=== PATIENT | male | born 1965 | race Asian ===

== ENCOUNTER 2016-07-28 14:00 | Emergency (ER) | payer MEDICARE, OTHER ==
[~2016-07-28] VITALS: Ht 162.6 cm; Wt 89.5 kg
[~2016-07-28 14:00] MED LIST: ALBU8.5H3 INH; ALLO300T46 PO; AMLO-218 PO; DOXY-220 PO; IBUP-1542 PO; IPRA4AER INHALATION; LOSA100T47 PO; PRED50TA PO; SYMB80120 INHALATION
[2016-07-28 14:09] VITALS: Ht 162.6 cm; Wt 89.5 kg
[2016-07-28] MEDS ORDERED: PROM118S PO (14:28)
[2016-07-28] MEDS ORDERED: DOCU-144 PO (14:28)
--- NOTE | 2016-07-28 14:34 | ERD ---
ER Documentation Chief Complaint Date/Time DATE: 07/28/16 TIME: 14:30 Chief Complaint rectal pain x 1 month, hx hemmorhoids HPI 50-year-old male had a hemorrhoid surgery a month ago comes emergency room with exacerbated hemorrhoid pain after developing a cough. Patient states that he has rectal pain for a month now unchanged however he notices it more when he coughs over the last 3 days. He has not had any chest pain, shortness breath or fevers or chills. Patient denies any diarrhea or vomiting, abdominal pain. ROS All systems reviewed and are negative except as per history of present illness. Medications Home Meds Active Scripts Docusate Sodium* (Colace*) 100 Mg Capsule, 100 MG PO BID, #60 CAP Prov:BUNNY AVERY PA-C 07/28/16 Promethazine/Phenyleph/Codeine (Xcburkkdrfdq-FH-Vcetefv Syrup) 118 Ml Syrup, 1 TSP PO Q6, #4 OZ Prov:BUNNY AVERY PA-C 07/28/16 Albuterol Sulfate* (Proair HFA*) 8.5 Gm Hfa.aer.ad, 2 PUFF INH Q4, #1 INHALER Prov:ANDREA AGUIRRE PA-C 06/15/16 Prednisone* (Prednisone*) 50 Mg Tablet, 50 MG PO DAILY for 3 Days, TAB Prov:ANDREA AGUIRRE PA-C 06/15/16 Ibuprofen* (Motrin*) 600 Mg Tab, 600 MG PO Q6, #20 TAB Prov:LEANN POLO MD 11/03/15 Albuterol/Ipratropium* (Combivent Respimat*) 20-100 Mcg/Inh - 4 Gm Aer.w.adap, 1 PUFF INHALATION QID, #1 INHALER Prov:CLARIBEL LAUREANO 09/02/15 Doxycycline Monohydrate* (Doxycycline Monohydrate*) 100 Mg Tablet, 100 MG PO BID , #10 TAB Prov:CLARIBEL LAUREANO 09/02/15 Prednisone* (Prednisone*) 50 Mg Tablet, 50 MG PO ONCE, #5 TAB Prov:CLARIBEL LAUREANO 09/02/15 Reported Medications Budesonide-Formoterol Fumarate* (Symbicort*) 80-4.5 Inha, INHALATION BID, #1 EACH 09/02/15 Losartan Potassium* (Cozaar*) 100 Mg Tablet, 100 MG PO DAILY, TAB 07/23/14 Allopurinol* (Zyloprim*) 300 Mg Tablet, 300 MG PO DAILY, TAB 01/21/14 Amlodipine Besylate* (Norvasc*) 10 Mg Tablet, 10 MG PO DAILY, TAB 01/21/14 Allergies Allergies: Coded Allergies: No Known Allergies (Verified Allergy, Unknown, 06/15/16) PMhx/Soc History of Surgery: No Anesthesia Reaction: No Hx Neurological Disorder: No Hx Respiratory Disorders: Yes (Asthma) Hx Cardiac Disorders: No Hx Psychiatric Problems: No Hx Miscellaneous Medical Probl: No Hx Alcohol Use: No Hx Substance Use: No Hx Tobacco Use: No Smoking Status: Never smoker Physical Exam Vitals Vital Signs Date Time Temp Pulse Resp B/P Pulse Ox O2 Delivery O2 Flow Rate FiO2 07/28/16 14:09 97.6 91 18 144/78 98 Physical Exam General: Well-developed, well-nourished. The patient appears in no acute distress. HEENT: Head is normocephalic, atraumatic. No scleral icterus. Neck: Supple. Nontender. Lungs: Clear to auscultation. Normal air movement. Heart: Regular rate and rhythm. S1 and S2 are normal. No murmurs, gallops, or rubs. Abdomen: Soft, nontender, nondistended. Bowel sounds are normoactive. Rectal: external exam shows rectal pain outside at the 4:00 position, no masses , small opening at 12:00 position that is 2 cm away from the rectum of 1mm. No abscess appreciated, no masses, no skin changes. Extremities: No clubbing or cyanosis. Normal pulses. Moving extremities x 4. No weakness. Neurologic: Alert and oriented 3. No focal deficits. Skin: Normal turgor. No rash or lesions. Procedures/MDM 50-year-old male presents with a history of hemorrhoids had a surgical removal and it has exacerbated pain over the last 3 days after developing a cough. Differentials include external, internal hemorrhoids, thrombosed versus nonthrombosed, perianal abscess, perirectal abscess, constipation, cellulitis and among others. Medically patient has pain on palpation at the 4 o'clock position, without any masses seen, there is a small opening that is 2 cm away but very superficial and there is evidence of dehiscence. He has developed URI symptoms over the last 3 days that has exacerbated his pain, otherwise he has no changes in the pattern, or location. At this time clinically there is no evidence of perirectal or perianal abscess and I do not believe patient needs further imaging. He will be given cough medication as well as Colace for pain. He has been asked to follow-up with his surgeon next week. Patient's blood pressure was elevated (>120/80) but appears stable without evidence of hypertension emergency or urgency. The patient was counseled about the risks of hypertension and urged to pursue outpatient monitoring and therapy within a week with their primary care physician. Departure Diagnosis: Primary Impression: Hemorrhoid Condition: Good Patient Instructions: Hemorrhoids Additional Instructions: Follow up with your surgeon next week. Return sooner for any worsening symptoms sooner. BUNNY AVERY PA-C Jul 28, 2016 14:33
== END 2016-07-28 14:48 | disposition home or self-care (01) ==
LOC: FTE 14:00
DX: K64.9 Unspecified hemorrhoids (principal); J45.909 Unspecified asthma, uncomplicated
CPT/HCPCS: 99283

== ENCOUNTER 2016-08-23 09:20 | Emergency (ER) | END 2016-08-23 11:36 | disposition home or self-care (01) | DX: J45.901 Unspecified asthma with (acute) exacerbation (principal); I10 Essential (primary) hypertension | CPT/HCPCS: 71010; 93005; 94644; J2930 ==

== ENCOUNTER 2017-10-09 14:24 | Emergency (ER) | END 2017-10-09 14:27 | disposition left against medical advice (07) ==

== ENCOUNTER 2018-12-12 09:07 | Inpatient (IN) | payer MEDICARE, OTHER ==
[~2018-12-12] VITALS: Ht 162.6 cm; Wt 85.7 kg
[~2018-12-12 09:07] MED LIST changes: +ALBU18HF INHALATION; -ALBU8.5H3 INH; +ALBU8.5H8 INH; -ALLO300T46 PO; +ALLO300T84 PO; +DOCU-144 PO; -DOXY-220 PO; +DOXY100T21 PO; +LOSA100T3 PO; -LOSA100T47 PO; +PRED20TA PO; +PROM118S PO
[2018-12-12] MEDS ORDERED: ACETAMINOPHEN 500 MG TAB PO STA (09:37)
[2018-12-12] MEDS ORDERED: KETOROLAC 30 MG INJ IV STA (09:37)
[2018-12-12] MEDS ORDERED: ALBUTEROL 0.083% (NEB) 2.5 MG/3 ML AMP HHN STA (09:57)
[2018-12-12] MEDS ORDERED: METHYLPRED. NA SUCC 250 MG in DEXTROSE 5% 50 ML IV ONE (10:00)
[2018-12-12] MEDS ORDERED: IPRATROPIUM (NEB) 0.5 MG/2.5 ML AMP HHN ONE (10:00)
[2018-12-12] MEDS ORDERED: SODIUM CHLORIDE 0.9% 1L BAG IV* STA (10:02)
[2018-12-12] MEDS ORDERED: CEFTRIAXONE 1 GM/50 ML (PMX) 50 ML IVPB ONE (10:30)
--- NOTE | 2018-12-12 14:22 | ERD ---
ER Documentation Chief Complaint Chief Complaint SOB X 1 month HX asthma HPI 53-year-old male presenting with shortness of breath and fever. Patient has had a dry cough and shortness of breath for the last month however fever developed last night he is having some worsening pain and troubles breathing. Patient states that he is short of breath on the right lung space. Denies any abdominal pain. Denies vomiting. Denies changes in urination or bowel movement. Denies other medical problems. NKDA. Surgical history hernia surgery. Social history denies ROS All systems reviewed and are negative except as per history of present illness. Medications Home Meds Active Scripts Albuterol Sulfate* (Ventolin HFA*) 18 Gm Hfa.aer.ad, 2 PUFF INHALATION Q4H, #1 INHALER Prov:DIANE PALMA PA-C 08/23/16 Prednisone* (Prednisone*) 20 Mg Tab, 40 MG PO DAILY for 4 Days, TAB Prov:DIANE PALMA PA-C 08/23/16 Docusate Sodium* (Colace*) 100 Mg Capsule, 100 MG PO BID, #60 CAP Prov:BUNNY AVERY PA-C 07/28/16 Promethazine/Phenyleph/Codeine (Aqwsprnlhhcg-ND-Otjtnea Syrup) 118 Ml Syrup, 1 TSP PO Q6, #4 OZ Prov:BUNNY AVERY PA-C 07/28/16 Albuterol Sulfate* (Proair HFA*) 8.5 Gm Hfa.aer.ad, 2 PUFF INH Q4, #1 INHALER Prov:ANDREA AGUIRRE PA-C 06/15/16 Prednisone* (Prednisone*) 50 Mg Tablet, 50 MG PO DAILY for 3 Days, TAB Prov:ANDREA AGUIRRE PA-C 06/15/16 Ibuprofen* (Motrin*) 600 Mg Tab, 600 MG PO Q6, #20 TAB Prov:LEANN POLO MD 11/03/15 Albuterol/Ipratropium* (Combivent Respimat*) 20-100 Mcg/Inh - 4 Gm Aer.w.adap, 1 PUFF INHALATION QID, #1 INHALER Prov:CLARIBEL LAUREANO MD 09/02/15 Doxycycline Monohydrate* (Doxycycline Monohydrate*) 100 Mg Tablet, 100 MG PO BID, #10 TAB Prov:CLARIBEL LAUREANO MD 09/02/15 Prednisone* (Prednisone*) 50 Mg Tablet, 50 MG PO ONCE, #5 TAB Prov:CLARIBEL LAUREANO MD 09/02/15 Reported Medications Budesonide-Formoterol Fumarate* (Symbicort*) 80-4.5 Inha, INHALATION BID, #1 EACH 09/02/15 Losartan Potassium* (Cozaar*) 100 Mg Tablet, 100 MG PO DAILY, TAB 07/23/14 Allopurinol* (Zyloprim*) 300 Mg Tablet, 300 MG PO DAILY, TAB 01/21/14 Amlodipine Besylate* (Norvasc*) 10 Mg Tablet, 10 MG PO DAILY, TAB 01/21/14 Allergies Allergies: Coded Allergies: No Known Allergies (Verified Allergy, Unknown, 12/12/18) PMhx/Soc History of Surgery: No Anesthesia Reaction: No Hx Neurological Disorder: No Hx Respiratory Disorders: Yes (Asthma) Hx Cardiac Disorders: No Hx Psychiatric Problems: No Hx Miscellaneous Medical Probl: No Hx Alcohol Use: No Hx Substance Use: No Hx Tobacco Use: No Smoking Status: Never smoker FmHx Family History: No diabetes, No coronary disease, No other Physical Exam Vitals Vital Signs Date Temp Pulse Resp B/P (MAP) Pulse Ox O2 O2 Flow FiO2 Time Delivery Rate 12/12/18 101.9 10:12 12/12/18 97 22 94 Nasal 2.0 10:05 Cannula 12/12/18 2.0 10:05 12/12/18 101.9 89 20 160/91 93 09:10 (114) Physical Exam GENERAL: The patient is well-appearing, well-nourished, in no acute distress HEENT: Atraumatic. Conjunctivae are pink. Pupils equal, round, and reactive to light. There is no scleral icterus. Tympanic membranes clear bilaterally. Minda pharynx clear. NECK: C-spine is soft and supple. There is no meningismus. There is no cervical lymphadenopathy. CHEST: Breath sounds heard throughout with retractions. Mild wheezing heard in all lung ramirez. HEART: Regular rate and rhythm. No murmurs, clicks, rubs or gallops. ABDOMEN:Soft, nontender and nondistended. Good bowel sounds. No rebound or guarding. No gross peritonitis. No gross organomegaly or masses. Result Diagram: 12/12/1854 12/12/1854 Results 24 hrs Laboratory Tests Test 12/12/18 09:47 12/12/18 09:54 12/12/18 10:01 12/12/18 10:38 Prothrombin Time 12.4 Sec Prothrombin Time 1.0 Ratio INR 0.91 International Normalized Ratio Activated 35.9 Sec Partial Thrombop last Time Troponin I < 0.012 ng/ml White Blood 16.4 10^3/ul Count Red Blood Count 4.94 10^6/ul Hemoglobin 15.2 g/dl Hematocrit 44.0 % Mean Corpuscular 89.1 fl Volume Mean Corpuscular 30.8 pg Hemoglobin Mean Corpuscular 34.5 g/dl Hemoglobin Nataliia nt Red Cell 13.1 % Distribution Width Platelet Count 249 10^3/UL Mean Platelet 9.8 fl Volume Immature 0.500 % Granulocytes % Neutrophils % 89.9 % Lymphocytes % 4.6 % Monocytes % 4.5 % Eosinophils % 0.1 % Basophils % 0.4 % Nucleated Red 0.0 /100WBC Blood Cells % Immature 0.080 10^3/ul Granulocytes # Neutrophils # 14.8 10^3/ul Lymphocytes # 0.8 10^3/ul Monocytes # 0.7 10^3/ul Eosinophils # 0.0 10^3/ul Basophils # 0.1 10^3/ul Nucleated Red 0.0 10^3/ul Blood Cells # Sodium Level 141 mmol/L Potassium Level 4.2 mmol/L Chloride Level 105 mmol/L Carbon Dioxide 24 mmol/L Level Anion Gap 12 Blood Urea 18 mg/dl Nitrogen Creatinine 0.95 mg/dl Est Glomerular > 60 mL/min Filtrat Rate mL/min Glucose Level 155 mg/dl Calcium Level 9.5 mg/dl Total Bilirubin 1.8 mg/dl Direct Bilirubin 0.00 mg/dl Indirect 1.8 mg/dl Bilirubin Aspartate Amino 26 IU/L Transf (AST/SGOT ) Alanine 21 IU/L Aminotransferase (ALT/SGPT) Alkaline 59 IU/L Phosphatase Total Protein 8.7 g/dl Albumin 4.9 g/dl Globulin 3.80 g/dl Albumin/Globulin 1.28 Ratio POC Venous 2.1 mmol/L Lactate Urine Color YELLOW Urine Clarity SLIGHTLY CLOUDY Urine pH 5.0 Urine Specific 1.027 [place] Urine Ketones NEGATIVE mg/dL Urine Nitrite NEGATIVE mg/dL Urine Bilirubin NEGATIVE mg/dL Urine NEGATIVE mg/dL Urobilinogen Urine Leukocyte NEGATIVE Pau/ul Esterase Urine 3 /HPF Microscopic RBC Urine 2 /HPF Microscopic WBC Urine Mucus MANY /HPF Urine Hemoglobin 1+ mg/dL Urine Glucose NEGATIVE mg/dL Urine Total 2+ mg/dl Protein Test 12/12/18 11:40 12/12/18 13:35 POC Venous 3.2 mmol/L Lactate Lactic Acid 6.0 mmol/L Level Current Medications Medications Dose Sig/Zuleika Start Time Status Last (Trade) Ordered Route PRN Stop Time Admin Dose Reason Admin 50 ml @ ONCE ONCE 12/12/18 DC 12/12/18 Methylprednis 100 mls/hr IV 10:00 10:42 olone Sodium 12/12/18 10:29 Succinate 250 mg/Dextrose Ketorolac 30 mg ONCE STAT 12/12/18 DC 12/12/18 Tromethamine IV 09:37 10:12 (Toradol) 12/12/18 09:40 1,000 mg ONCE STAT 12/12/18 DC 12/12/18 Acetaminophen PO 09:37 10:12 (Tylenol 12/12/18 09:40 Tab) Albuterol 10 mg ONCE STAT 12/12/18 DC 12/12/18 (Proventil HHN 09:57 10:03 0.083% (Neb)) 12/12/18 09:59 Ipratropium 1 mg ONCE ONCE 12/12/18 DC 12/12/18 [place] HHN 10:00 10:03 (Atrovent 12/12/18 10:01 0.02% (Neb)) Sodium 2,660 ml BOLUS OVER 2 12/12/18 DC 12/12/18 Chloride HOURS STAT 10:02 10:13 (NS) IV* 12/12/18 10:04 Ceftriaxone 50 ml @ ONCE ONCE 12/12/18 DC 12/12/18 Sodium 100 mls/hr IVPB 10:30 10:12 12/12/18 10:59 Procedures/MDM Admit MDM: Patient's infectious symptoms have not stabilized and the patient is at risk of rapid decompensation. The patient will be admitted for careful hydration, antibiotic therapy, and infectious source control. Severe Sepsis criteria: Infectious source: Unknown End organ damage indicated by: Lactate > 2.0 mmol/L Sepsis Management: Time of recognition of severe sepsis: 13:35 Within 3 hours of recognition: Blood cultures x 2 before broad-spectrum antibiotics: [+]Yes 30 ml/kg NS bolus [+]Completed Initial lactate [+] Repeat lactate [+]Not indicated as initial lactate < 2.0 Septic Shock Assessment: Any lactic acid > 4.0 [+]Yes Persistent hypotension (SBP < 90 or 40 mmHg drop, MAP < 65) despite 30 mL/kg IV fluid bolus [-]No A focused sepsis perfusion/reperfusion reassessment examination was performed post 30ml/kg bolus @ []: Temp [], BP [], HR [], RR[], Pox [] Persistent Hypotension Treatment: Comfort care [-]No Hypotension caused by: pt. baseline, med-induced, erroneous value, condition other than infection [-]No Refusal by patient/decision maker for: blood draw, IVF, Antibiotics, Pressors [- ]No Central line [-] Vasopressor started [-]Norepinehrine I considered further perfusion assessment with CVP measurement, SCVO2, bedside ultrasound volume assessment, passive leg raise, trial of further fluid bolus and proceeded with. Accepting Care Team Current data and ongoing care discussed. Time: [14:16] Admitting Physician: [Ambreen] Home Coordinator(s): Outstanding Data: []None Critical Care Time: [60] minutes Treatments/Evaluations: Close monitoring and treatment of unstable vital signs, cardiorespiratory, and neurologic status, while maintaining tight balance of fluid, respiratory, and cardiac interventions. This includes the administration of emergency fluid management while maintaining close respiratory support as well as the provision of immediate and broad-spectrum antibiotic therapy, while performing a simultaneous assessment for possible sources in order to direct targeted therapy. This time includes discussing the case with the patient and the patient's family. This time also includes the consideration for invasive and chemical support to prevent cardiopulmonary collapse. This time does not inclu de all procedures stated elsewhere in this record. This time also includes reviewing old records, labs and radiological studies. This time includes examining and re-examining the patient. Additionally, this time also includes arranging care with admitting and consulting physicians. DIAGNOSTIC IMAGING REPORT Patient: TAMIKA DAWKINS : 1965 Age: 53 Sex: M MR #: [id number] DOS: 12/12/18 0937 Ordering MD: DESIREE WARNER PA-C Location: [facility] Room/Bed: PROCEDURE: Single view chest. CLINICAL INDICATION: Abdominal pain TECHNIQUE: Single view of the chest was obtained COMPARISON: CR CHEST 08/23/2016; CR CHEST 06/15/2016; CR CHEST 09/02/2015 FINDINGS: Cardiac silhouette is mildly enlarged. There is subtle interstitial prominence without confluent air space consolidation or evidence of an effusion. There is no pneumothorax. Regional bones are unremarkable. IMPRESSION: Mildly enlarged cardiac silhouette. Subtle interstitial prominence favored to represent trace edema, less likely inflammation. ER course: Albuterol Atrovent breathing treatment given in ED. IV Solu-Medrol given in ED. Lactic acid drawn 3 times during visit and is increasing. Rocephin given in ED. Patient admitted with concern for septic shock of unknown origin. Feel patient is stable at the time of admission. MDM: 53-year-old male presenting with shortness of breath x1 month. Patient has a fever. Patient will be admitted for higher level of care. patient has increasing lactic acid levels while in the emergency room. I have considered pneumonia versus endocarditis versus meningitis or sepsis. Patient is nontoxic- appearing however blood work is concerning for severe sepsis. Patient is admitted. Patient is stable at the time of admission. Patient currently has fever of unknown origin SAILAJA WARNER PA-C December 12, 2018 14:22
[2018-12-12] MEDS ORDERED: ACETAMINOPHEN 325 MG TAB PO PRN ×2 (15:30→21:00)
[2018-12-12] MEDS ORDERED: ONDANSETRON 4 MG INJ IV PRN (15:30)
[2018-12-12] MEDS ORDERED: BUDE6.9H INHALATION (16:09)
[2018-12-12] MEDS ORDERED: LOSA100T15 PO (16:10)
[2018-12-12] MEDS ORDERED: LATA2.5D2 BOTH EYES (16:10)
[2018-12-12] MEDS ORDERED: AMLO-147 PO (16:10)
[2018-12-12] MEDS ORDERED: ALBU18HF INHALATION (16:11)
[2018-12-12 17:00] VITALS: PULSE 96
[2018-12-12 17:22] VITALS: BP 155/89; PULSE 100; RESP 18
[2018-12-12] MEDS ORDERED: ALBUTEROL/IPRATROPIUM (NEB) 3 ML AMP HHN PRN (17:30)
[2018-12-12] MEDS ORDERED: ALBUTEROL/IPRATROPIUM (NEB) 3 ML AMP HHN STA (17:45)
[2018-12-12] MEDS ORDERED: BUDESONIDE (NEB) 0.5MG/2ML AMP HHN ONE (18:00)
[2018-12-12 19:59] VITALS: Ht 162.6 cm; Wt 85.7 kg
[2018-12-12 20:00] VITALS: PULSE 99
[2018-12-12 20:04] VITALS: BP 124/70; PULSE 102; RESP 20
[2018-12-12] MEDS ORDERED: CEPASTAT LOZENGE MT PRN (21:00)
[2018-12-12] MEDS ORDERED: GUAIFENESIN/CODEINE 5ML CUP PO PRN (21:00)
[2018-12-12] MEDS ORDERED: ALBUTEROL/IPRATROPIUM (NEB) 3 ML AMP HHN SCH (21:00)
[2018-12-12] MEDS ORDERED: AZITHROMYCIN 500 MG in SOD CHLORIDE 0.9% 250 ML IVPB ONE (21:30)
[2018-12-12] MEDS: AMLODIPINE 10 MG TAB PO SCH (21:38)
[2018-12-12] MEDS: ALBUTEROL/IPRATROPIUM (NEB) 3 ML AMP HHN SCH (22:20)
[2018-12-12] MEDS: POTASSIUM CHLORIDE 10 MEQ in SOD CHLORIDE 0.9% 1,000 ML IV SCH (23:44)
[2018-12-12] MEDS: LATANOPROST 0.005% 2.5 ML OPH BOTH EYES SCH (23:45)
[2018-12-13] VITALS (14 sets, daily range): BP systolic 117–135; BP diastolic 58–84; PULSE 74–158; RESP 17–20
[2018-12-13] MEDS: ALBUTEROL/IPRATROPIUM (NEB) 3 ML AMP HHN SCH ×6 (01:23→20:14)
[2018-12-13] MEDS: POTASSIUM CHLORIDE 10 MEQ in SOD CHLORIDE 0.9% 1,000 ML IV SCH ×3 (08:03→20:48)
[2018-12-13] MEDS: CEFTRIAXONE 1 GM/50 ML (PMX) 50 ML IVPB SCH (08:31)
[2018-12-13] MEDS: AMLODIPINE 10 MG TAB PO SCH (08:31)
[2018-12-13] MEDS: ALLOPURINOL 300 MG TAB PO SCH (08:31)
[2018-12-13] MEDS: LISINOPRIL 10 MG TAB PO SCH (08:31)
[2018-12-13] MEDS: ENOXAPARIN 40 MG/0.4 ML SYG SC SCH (08:45)
[2018-12-13] MEDS: FLUTICASONE/VILANTEROL 100-25 INH SCH (11:56)
--- NOTE | 2018-12-13 13:11 | PN ---
Date/Time of Note Date/Time of Note DATE: 12/13/18 TIME: 12:57 Assessment/Plan VTE Prophylaxis Risk score (from [facility])>0 risk: 3 SCD applied (from [place]): No SCD contraindicated: low risk/ambulating Pharmacological prophylaxis: LMWH Lines/Catheters IV [facility] Type [facility]from [facility]): Peripheral IV Assessment/Plan Hospital Course A: fever- unclear source, afebrile now lactic acidosis- r/o sepsis, normal now asthma exacerbation elevated ck with myalgia HTN P: cont hydration cont current abx pending cx results cont resp rx cont iv solumedrol pulm consult cont hold losartan discussed with rheum cont hydration, will eval elevated ck as outpt monitor labs Result Diagram: 12/13/1852112/13/18521 Results 24hrs Laboratory Tests Test 12/12/18 13:35 12/12/18 17:51 12/12/18 21:26 12/13/18 05:22 Lactic Acid Level 6.0 *H 5.5 *H 4.6 *H White Blood Count 14.0 H Red Blood Count 4.37 L Hemoglobin 13.4 L Hematocrit 39.1 L Mean Corpuscular 89.5 Volume Mean Corpuscular 30.7 Hemoglobin Mean Corpuscular 34.3 Hemoglobin Concent Red Cell 13.7 Distribution Width Platelet Count 223 Mean Platelet Volume 10.0 Immature 0.800 H Granulocytes % Neutrophils % 86.2 H Lymphocytes % 8.0 L Monocytes % 4.9 Eosinophils % 0.0 Basophils % 0.1 Nucleated Red Blood 0.0 Cells % Immature 0.110 H Granulocytes # Neutrophils # 12.1 H Lymphocytes # 1.1 Monocytes # 0.7 Eosinophils # 0.0 Basophils # 0.0 Nucleated Red Blood 0.0 Cells # Sodium Level 143 Potassium Level 4.0 Chloride Level 109 Carbon Dioxide Level 23 Anion Gap 11 Blood Urea Nitrogen 16 Creatinine 0.83 Est Glomerular > 60 Filtrat Rate mL/min Glucose Level 144 Calcium Level 8.7 Total Bilirubin 0.9 Direct Bilirubin 0.00 Indirect Bilirubin 0.9 Aspartate Amino 29 Transf (AST/SGOT) Alanine 25 Aminotransferase (AL T/SGPT) Alkaline Phosphatase 45 Creatine Kinase 553 H Total Protein 7.4 # Albumin 4.0 Globulin 3.40 H Albumin/Globulin 1.17 Ratio Test 12/13/18 07:38 Lactic Acid Level 2.0 Subjective 24 Hr Interval Summary Free Text/Dictation Pt still with productive cough and wheeze, improved with respiratory rx. Still some sob, no cp. Myalgias persist, did have elevated ck, but less this am. Losartan d/c'd. Appetite improved. Lactic acid normalized. Exam/Review of Systems Exam Vitals Vital Signs Date Temp Pulse Resp B/P (MAP) Pulse Ox O2 O2 Flow FiO2 Time Delivery Rate 12/13/18 100 12:00 12/13/18 4 2.0 11:40 12/13/18 20 Nasal 11:38 Cannula 12/13/18 97.9 121/58 11:17 (79) 12/12/18 28 17:50 Intake and Output 12/12/18 12/12/18 12/13/18 1515:00 23:00 07:00 IntakeIntake Total 2760 ml 120 ml 650 ml BalanceBalance 2760 ml 120 ml 650 ml Exam gen- nad, nontoxic heent- anicteric, o/p clear neck- supple, no adenopathy lungs- diffuse expiratory wheeze heart- RRR ext- no edema Results Results 24hrs Laboratory Tests Test 12/12/18 13:35 12/12/18 17:51 12/12/18 21:26 12/13/18 05:22 Lactic Acid Level 6.0 *H 5.5 *H 4.6 *H White Blood Count 14.0 H Red Blood Count 4.37 L Hemoglobin 13.4 L Hematocrit 39.1 L Mean Corpuscular 89.5 Volume Mean Corpuscular 30.7 Hemoglobin Mean Corpuscular 34.3 Hemoglobin Concent Red Cell 13.7 Distribution Width Platelet Count 223 Mean Platelet Volume 10.0 Immature 0.800 H Granulocytes % Neutrophils % 86.2 H Lymphocytes % 8.0 L Monocytes % 4.9 Eosinophils % 0.0 Basophils % 0.1 Nucleated Red Blood 0.0 Cells % Immature 0.110 H Granulocytes # Neutrophils # 12.1 H Lymphocytes # 1.1 Monocytes # 0.7 Eosinophils # 0.0 Basophils # 0.0 Nucleated Red Blood 0.0 Cells # Sodium Level 143 Potassium Level 4.0 Chloride Level 109 Carbon Dioxide Level 23 Anion Gap 11 Blood Urea Nitrogen 16 Creatinine 0.83 Est Glomerular > 60 Filtrat Rate mL/min Glucose Level 144 Calcium Level 8.7 Total Bilirubin 0.9 Direct Bilirubin 0.00 Indirect Bilirubin 0.9 Aspartate Amino 29 Transf (AST/SGOT) Alanine 25 Aminotransferase (AL T/SGPT) Alkaline Phosphatase 45 Creatine Kinase 553 H Total Protein 7.4 # Albumin 4.0 Globulin 3.40 H Albumin/Globulin 1.17 Ratio Test 12/13/18 07:38 Lactic Acid Level 2.0 Medications Medication Current Medications Ondansetron HCl (Zofran Inj) 4 mg BRIDGE ORDER PRN IV NAUSEA/VOMITING; Start 12/12/18 at 15:30; Stop 12/13/18 at 15:29 Acetaminophen (Tylenol Tab) 650 mg ER BRIDGE PRN PO .MILD PAIN 1-3 OR TEMP Last administered on 12/12/18 20:07; Admin Dose 650 MG; Start 12/12/18 at 15:30; Stop 12/13/18 at 15:29 Albuterol/ Ipratropium (Duoneb) 3 ml Q4H RESP THERAPY HHN Last administered on 12/13/18 11:36; Admin Dose 3 ML; Start 12/12/18 at 21:00 Amlodipine Besylate (Norvasc) 10 mg DAILY PO Last administered on 12/13/18 08:31; Admin Dose 10 MG; Start 12/12/18 at 21:00 Lisinopril (Zestril) 10 mg DAILY PO Last administered on 12/13/18 08:31; Admin Dose 10 MG; Start 12/13/18 at 09:00 Guaifenesin/ Codeine Phosphate (Robitussin Ac Liquid Cup) 5 ml Q4H PRN PO cough Last administered on 12/12/18 21:39; Admin Dose 5 ML; Start 12/12/18 at 21:00 Phenol (Cepastat Lozenge) 1 lozenge Q1H PRN MT pain Last administered on 12/12/18 21:38; Admin Dose 1 LOZENGE; Start 12/12/18 at 21:00 Allopurinol (Zyloprim) 300 mg DAILY PO Last administered on 12/13/18 08:31; A dmin Dose 300 MG; Start 12/13/18 at 09:00 Acetaminophen (Tylenol Tab) 650 mg Q4H PRN PO MILD PAIN(1-3)OR ELEVATED TEMP; Start 12/12/18 at 21:00 Potassium Chloride 10 meq/ Sodium Chloride 1,005 ml @ 100 mls/hr Q10H3M IV Last administered on 12/13/18 11:56; Admin Dose 100 MLS/HR; Start 12/12/18 at 22:00 Ceftriaxone Sodium 50 ml @ 100 mls/hr Q24H IVPB Last administered on 12/13/18 08:31; Admin Dose 100 MLS/HR; Start 12/13/18 at 09:00 Enoxaparin Sodium (Lovenox) 40 mg DAILY SC Last administered on 12/13/18 08:45; Admin Dose 40 MG; Start 12/13/18 at 09:00 Latanoprost (Xalatan) 1 drop HS BOTH EYES Last administered on 12/12/18 23:45; Admin Dose 1 DROP; Start 12/12/18 at 21:00 Fluticasone/ Vilanterol (Breo Ellipta 100-25 Mcg Inh) 1 inh DAILY INH Last administered on 12/13/18 11:56; Admin Dose 1 INH; Start 12/13/18 at 10:30 BRANDY BENITEZ MD December 13, 2018 13:11
--- NOTE | 2018-12-13 13:28 | HP ---
DATE OF ADMISSION: 12/12/2018 CHIEF COMPLAINT: A 2-day history of sore throat, productive cough, myalgias, wheezing, shortness of breath and subjective fever. HISTORY OF PRESENT ILLNESS: The patient is a 53-year-old Irish male with a history of asthma who reports he was feeling ill last few days with a sore throat, cough productive of yellow sputum, muscl e aches, wheezing, shortness of breath and subjective fever. Patient presented to the ER and noted t o have asthma exacerbation and increasing lactic acid. Patient was hydrated, started on antibiotics, found to have fever of 101 with a white count of 16.4. Patient is admitted for further management. PAST MEDICAL HISTORY: Asthma, hypertension, gout, hyperlipidemia, developmental delay, allergies and hemorrhoids. OPERATIONS: Perirectal abscess, hemorrhoids. MEDICATIONS: 1. Losartan 100 mg daily. 2. Norvasc 10 mg daily. 3. ProAir p.r.n. 4. Advair Diskus b.i.d. ALLERGIES: Patient has no known drug allergies. SOCIAL HISTORY: The patient does not smoke or drink. He is single. FAMILY HISTORY: Father , unsure cause. Mother also , unsure cause. The patient had 7 b rothers, 1 . One sister is . REVIEW OF SYSTEMS: GENERAL: As noted in HPI. HEENT: Denies any headache, congestion, rhinorrhea. He does have sore throat as noted in HPI. No o ther HEENT complaints. RESPIRATORY: As in HPI. CARDIOVASCULAR: Denies any chest pain, palpitations, dizziness, or other cardiovascular symptoms. GASTROINTESTINAL: The patient denies any abdominal pain, nausea, vomiting, bright red blood per rect um, melena, or other GI symptoms. GENITOURINARY: The patient denies any dysuria, frequency, or other symptoms. NEUROLOGIC: The patient denies any numbness, tingling or weakness. PHYSICAL EXAMINATION: On admission: VITAL SIGNS: Temperature 101.9, pulse 95, blood pressure 154/82, pulse ox 95% on room air, respirato ry rate 20. GENERAL APPEARANCE: The patient is a well-developed, well-nourished Irish male with complaints of shortness of breath, otherwise in no acute distress. He appears nontoxic. HEENT: Normocephalic, atraumatic. Sclerae anicteric. Oropharynx is clear. NECK: Supple, no adenopathy, no bruits. LUNGS: Have diffuse expiratory wheezing. CARDIAC: Regular rate and rhythm. ABDOMEN: Bowel sounds are present. Abdomen is soft, nontender, nondistended. EXTREMITIES: Without cyanosis, clubbing, or edema. NEUROLOGIC: The patient is alert and oriented x3 with no focal neurologic findings. DATA: White count 16.4, hemoglobin 15.2, hematocrit 44, platelets 249. Sodium 141, potassium 4.2, c hloride 105, bicarbonate 24, BUN 18, creatinine 0.95, glucose 155, bilirubin 1.8. AST 26, ALT 21, al kaline phosphatase 59. Troponin less than 0.012. Lactate 2.1, increased to 3.2. Serum lactic acid was 6 to 5.5, last was 4.6. UA was slightly cloudy, 3 RBCs, 2 WBCs, 1+ hemoglobin, and many mu cus, 2+ protein. Chest x-ray showed a mildly enlarged cardiac silhouette, central interstitial promi nence, no obvious consolidation or effusion. IMPRESSION: 1. Fever, unclear source. 2. Lactic acidosis, rule out sepsis. 3. Asthma exacerbation. 4. Hypertension. 5. Elevated CK with mild . PLAN: 1. Admit to tele. 2. IV hydration. 3. IV antibiotics. 4. Ceftriaxone and Zithromax. 5. Respiratory treatments. 6. Continue IV steroids. 7. Monitor lactic acid. 8. Discharge Losartan and start on lisinopril. 9. Continue other outpatient meds. 10. Consider pulmonary evaluation. Dictated By: BRANDY FLORES/VAISHNAVI Conf#: [id number] DID#: [id number]
[2018-12-13] MEDS ORDERED: METHYLPREDNISOLONE 40 MG INJ IV ONE (13:30)
--- NOTE | 2018-12-13 17:04 | CONS ---
Assessment/Plan Assessment/Plan Assessment/Plan (Daily) Chest x-ray showing interstitial prominence. Assessment and recommendations; 1. patient admitted with acute bronchitis with asthma exacerbation with bilateral wheezing. 2. History of hypertension and glaucoma. Continue current supportive care. Increase Solu-Medrol to 40 mg every 6 hours. Continue allopurinol as the patient now is complaining of mild gout pain. Consultation Date/Type/Reason Admit Date/Time December 12, 2018 at 15:27 Date of Consultation: December 13, 2018 Type of Consult Pulmonary Patient is a 53-year-old [place] gentleman who came into the hospital yesterday with a 10-day history of coughing sputum production wheezing and chest congestion. The patient does have a history of asthma. He denies any high fever, body aches or myalgias. Does complain of mild sore throat. Denies any nausea vomiting. Past medical history; 1. History of asthma 2. Gout 3. Glaucoma 4. Hypertension Medications; reviewed Allergies; none Social history; noncontributory Family history; he is single, no show any asthma in the family. Occupational history; patient is on disability. Review of systems; denies any headache, visual changes, sinus symptoms. Complains of mild sore throat. Denies any fever or chills. Complains of wheezing, cough, production of yellow sputum. Denies any hemoptysis. Denies any abdominal pain, nausea vomiting. Any melena or hematochezia. Denies any edema. Any urinary symptoms. General exam; middle-aged male, awake alert, currently no distress. Date/Time of Note DATE: 12/13/18 TIME: 17:01 Past Medical History Home Meds Reported Medications Albuterol Sulfate* (Ventolin HFA*) 18 Gm Hfa.aer.ad, 2 PUFF INHALATION Q4H, #1 INHALER 12/12/18 Losartan Potassium* (Losartan Potassium*) 100 Mg Tablet, 100 MG PO DAILY, TAB 12/12/18 Amlodipine Besylate* (Amlodipine Besylate*) 10 Mg Tablet, 10 MG PO DAILY, #30 TAB 12/12/18 Latanoprost (Latanoprost) 2.5 Ml Drops, 1 DROP BOTH EYES QHS, #1 BOTTLE 12/12/18 Budesonide-Formoterol Fumarate* (Symbicort*) 80-4.5 Mcg Hfa.aer.ad, 2 PUFF INHALATION BID, BOTTLE 12/12/18 Discontinued Reported Medications Budesonide-Formoterol Fumarate* (Symbicort*) 80-4.5 Inha, INHALATION BID, #1 EACH 09/02/15 Losartan Potassium* (Cozaar*) 100 Mg Tablet, 100 MG PO DAILY, TAB 07/23/14 Allopurinol* (Zyloprim*) 300 Mg Tablet, 300 MG PO DAILY, TAB 01/21/14 Amlodipine Besylate* (Norvasc*) 10 Mg Tablet, 10 MG PO DAILY, TAB 01/21/14 Discontinued Scripts Albuterol Sulfate* (Ventolin HFA*) 18 Gm Hfa.aer.ad, 2 PUFF INHALATION Q4H, #1 INHALER Prov:DIANE PALMA PA-C 08/23/16 Prednisone* (Prednisone*) 20 Mg Tab, 40 MG PO DAILY for 4 Days, TAB Prov:DIANE PALMA PA-C 08/23/16 Docusate Sodium* (Colace*) 100 Mg Capsule, 100 MG PO BID, #60 CAP Prov:BUNNY AVERY PA-C 07/28/16 Promethazine/Phenyleph/Codeine (Yrzayteqiftw-JN-Lidffme Syrup) 118 Ml Syrup, 1 TSP PO Q6, #4 OZ Prov:BUNNY AVERY PA-C 07/28/16 Albuterol Sulfate* (Proair HFA*) 8.5 Gm Hfa.aer.ad, 2 PUFF INH Q4, #1 INHALER Prov:ANDREA AGUIRRE PA-C 06/15/16 Prednisone* (Prednisone*) 50 Mg Tablet, 50 MG PO DAILY for 3 Days, TAB Prov:ANDREA AGUIRRE PA-C 06/15/16 Ibuprofen* (Motrin*) 600 Mg Tab, 600 MG PO Q6, #20 TAB Prov:LEANN POLO MD 11/03/15 Albuterol/Ipratropium* (Combivent Respimat*) 20-100 Mcg/Inh - 4 Gm Aer.w.adap, 1 PUFF INHALATION QID, #1 INHALER Prov:CLARIBEL LAUREANO MD 09/02/15 Doxycycline Monohydrate* (Doxycycline Monohydrate*) 100 Mg Tablet, 100 MG PO BID, #10 TAB Prov:CLARIBEL LAUREANO MD 09/02/15 Prednisone* (Prednisone*) 50 Mg Tablet, 50 MG PO ONCE, #5 TAB Prov:CLARIBEL LAUREANO MD 09/02/15 Medications Current Medications Albuterol/ Ipratropium (Duoneb) 3 ml Q4H RESP THERAPY HHN Last administered on 12/13/18 16:42; Admin Dose 3 ML; Start 12/12/18 at 21:00 Amlodipine Besylate (Norvasc) 10 mg DAILY PO Last administered on 12/13/18 08:31; Admin Dose 10 MG; Start 12/12/18 at 21:00 Lisinopril (Zestril) 10 mg DAILY PO Last administered on 12/13/18 08:31; Admin Dose 10 MG; Start 12/13/18 at 09:00 Guaifenesin/ Codeine Phosphate (Robitussin Ac Liquid Cup) 5 ml Q4H PRN PO cough Last administered on 12/12/18 21:39; Admin Dose 5 ML; Start 12/12/18 at 21:00 Phenol (Cepastat Lozenge) 1 lozenge Q1H PRN MT pain Last administered on 12/12/18 21:38; Admin Dose 1 LOZENGE; Start 12/12/18 at 21:00 Allopurinol (Zyloprim) 300 mg DAILY PO Last administered on 12/13/18 08:31; Admin Dose 300 MG; Start 12/13/18 at 09:00 Acetaminophen (Tylenol Tab) 650 mg Q4H PRN PO MILD PAIN(1-3)OR ELEVATED TEMP; Start 12/12/18 at 21:00 Potassium Chloride 10 meq/ Sodium Chloride 1,005 ml @ 100 mls/hr Q10H3M IV Last administered on 12/13/18 11:56; Admin Dose 100 MLS/HR; Start 12/12/18 at 22:00 Ceftriaxone Sodium 50 ml @ 100 mls/hr Q24H IVPB Last administered on 12/13/18 08:31; Admin Dose 100 MLS/HR; Start 12/13/18 at 09:00 Enoxaparin Sodium (Lovenox) 40 mg DAILY SC Last administered on 12/13/18 08:45; Admin Dose 40 MG; Start 12/13/18 at 09:00 Latanoprost (Xalatan) 1 drop HS BOTH EYES Last administered on 12/12/18at 23:45; Admin Dose 1 DROP; Start 12/12/18 at 21:00 Fluticasone/ Vilanterol (Breo Ellipta 100-25 Mcg Inh) 1 inh DAILY INH Last administered on 12/13/18at 11:56; Admin Dose 1 INH; Start 12/13/18 at 10:30 Allergies: Coded Allergies: No Known Allergies (Verified Allergy, Unknown, 12/12/18) Social History Smoking Status: Never smoker Exam/Review of Systems Exam Vitals Vital Signs Date Temp Pulse Resp B/P (MAP) Pulse Ox O2 O2 Flow FiO2 Time Delivery Rate 12/13/18 97 2.0 16:49 12/13/18 81 20 Nasal 16:46 Cannula 12/13/18 98.7 117/72 15:00 (87) 12/12/18 28 17:50 Intake and Output 12/12/18 12/12/18 12/13/18 1515:00 23:00 07:00 IntakeIntake Total 2760 ml 120 ml 650 ml BalanceBalance 2760 ml 120 ml 650 ml Exam H EENT exam; supple neck, no JVD. No lymphadenopathy. Midline trachea. No thyromegaly. Patient has fair dentition. No neck masses. Pupils are small bilaterally. Chest exam; bilateral wheezing. S1-S2 audible, no murmurs. Regular rhythm. Abdomen exam; soft, nontender. No organomegaly. Bowel sounds audible. Extremity exam; no peripheral edema clubbing. Pulses 1+. MANAGER CARGO exam; no focal deficit. Results Result Diagram: 12/13/1852112/13/18521 Results 24hrs Laboratory Tests Test 12/12/18 17:51 12/12/18 21:26 12/13/18 05:22 12/13/18 07:38 Lactic Acid Level 5.5 *H 4.6 *H 2.0 White Blood Count 14.0 H Red Blood Count 4.37 L Hemoglobin 13.4 L Hematocrit 39.1 L Mean Corpuscular 89.5 Volume Mean Corpuscular 30.7 Hemoglobin Mean Corpuscular 34.3 Hemoglobin Concent Red Cell 13.7 Distribution Width Platelet Count 223 Mean Platelet Volume 10.0 Immature 0.800 H Granulocytes % Neutrophils % 86.2 H Lymphocytes % 8.0 L Monocytes % 4.9 Eosinophils % 0.0 Basophils % 0.1 Nucleated Red Blood 0.0 Cells % Immature 0.110 H Granulocytes # Neutrophils # 12.1 H Lymphocytes # 1.1 Monocytes # 0.7 Eosinophils # 0.0 Basophils # 0.0 Nucleated Red Blood 0.0 Cells # Sodium Level 143 Potassium Level 4.0 Chloride Level 109 Carbon Dioxide Level 23 Anion Gap 11 Blood Urea Nitrogen 16 Creatinine 0.83 Est Glomerular > 60 Filtrat Rate mL/min Glucose Level 144 Calcium Level 8.7 Total Bilirubin 0.9 Direct Bilirubin 0.00 Indirect Bilirubin 0.9 Aspartate Amino 29 Transf (AST/SGOT) Alanine 25 Aminotransferase (AL T/SGPT) Alkaline Phosphatase 45 Creatine Kinase 553 H Total Protein 7.4 # Albumin 4.0 Globulin 3.40 H Albumin/Globulin 1.17 Ratio Medications Medication Current Medications Albuterol/ Ipratropium (Duoneb) 3 ml Q4H RESP THERAPY HHN Last administered on 12/13/18 16:42; Admin Dose 3 ML; Start 12/12/18 at 21:00 Amlodipine Besylate (Norvasc) 10 mg DAILY PO Last administered on 12/13/18 08:31; Admin Dose 10 MG; Start 12/12/18 at 21:00 Lisinopril (Zestril) 10 mg DAILY PO Last administered on 12/13/18 08:31; Admin Dose 10 MG; Start 12/13/18 at 09:00 Guaifenesin/ Codeine Phosphate (Robitussin Ac Liquid Cup) 5 ml Q4H PRN PO cough Last administered on 12/12/18 21:39; Admin Dose 5 ML; Start 12/12/18 at 21:00 Phenol (Cepastat Lozenge) 1 lozenge Q1H PRN MT pain Last administered on 12/12/18 21:38; Admin Dose 1 LOZENGE; Start 12/12/18 at 21:00 Allopurinol (Zyloprim) 300 mg DAILY PO Last administered on 12/13/18 08:31; Admin Dose 300 MG; Start 12/13/18 at 09:00 Acetaminophen (Tylenol Tab) 650 mg Q4H PRN PO MILD PAIN(1-3)OR ELEVATED TEMP; Start 12/12/18 at 21:00 Potassium Chloride 10 meq/ Sodium Chloride 1,005 ml @ 100 mls/hr Q10H3M IV Last administered on 12/13/18 11:56; Admin Dose 100 MLS/HR; Start 12/12/18 at 22:00 Ceftriaxone Sodium 50 ml @ 100 mls/hr Q24H IVPB Last administered on 12/13/18 08:31; Admin Dose 100 MLS/HR; Start 12/13/18 at 09:00 Enoxaparin Sodium (Lovenox) 40 mg DAILY SC Last administered on 12/13/18 08:45; Admin Dose 40 MG; Start 12/13/18 at 09:00 Latanoprost (Xalatan) 1 drop HS BOTH EYES Last administered on 12/12/18 23:45; Admin Dose 1 DROP; Start 12/12/18 at 21:00 Fluticasone/ Vilanterol (Breo Ellipta 100-25 Mcg Inh) 1 inh DAILY INH Last administered on 12/13/18 11:56; Admin Dose 1 INH; Start 12/13/18 at 10:30 MELISSA ROWE December 13, 2018 17:04
[2018-12-13] MEDS: METHYLPREDNISOLONE 40 MG INJ IV SCH (17:47)
[2018-12-13] MEDS ORDERED: COLCHICINE 0.6 MG TAB PO ONE (18:30)
[2018-12-13] MEDS: LATANOPROST 0.005% 2.5 ML OPH BOTH EYES SCH (20:38)
[2018-12-14] VITALS (10 sets, daily range): BP systolic 121–152; BP diastolic 66–86; PULSE 70–94; RESP 18–20
[2018-12-14] MEDS: METHYLPREDNISOLONE 40 MG INJ IV SCH ×4 (00:03→17:03)
[2018-12-14] MEDS: ALBUTEROL/IPRATROPIUM (NEB) 3 ML AMP HHN SCH ×6 (00:26→20:27)
[2018-12-14] MEDS: POTASSIUM CHLORIDE 10 MEQ in SOD CHLORIDE 0.9% 1,000 ML IV SCH ×2 (06:36→17:41)
[2018-12-14] MEDS: LISINOPRIL 10 MG TAB PO SCH (08:00)
[2018-12-14] MEDS: FLUTICASONE/VILANTEROL 100-25 INH SCH (08:00)
[2018-12-14] MEDS: ALLOPURINOL 300 MG TAB PO SCH (08:00)
[2018-12-14] MEDS: AMLODIPINE 10 MG TAB PO SCH (08:00)
[2018-12-14] MEDS: CEFTRIAXONE 1 GM/50 ML (PMX) 50 ML IVPB SCH (08:00)
[2018-12-14] MEDS: ENOXAPARIN 40 MG/0.4 ML SYG SC SCH (08:16)
--- NOTE | 2018-12-14 11:54 | CONS ---
Consult Date/Type/Reason Admit Date/Time December 12, 2018 at 15:27 Initial Consult Date 12/13/18 Type of Consult Pulmonary Date/Time of Note DATE: 12/14/18 TIME: 11:53 Subjective Patient stable this morning. Still has shortness of breath on exertion Objective Vital Signs Date Temp Pulse Resp B/P (MAP) Pulse Ox O2 O2 Flow FiO2 Time Delivery Rate 12/14/18 97.3 86 18 150/81 98 Nasal 2.0 11:27 (104) Cannula 12/12/18 28 17:50 Intake and Output 12/13/18 12/13/18 12/14/18 1515:00 23:00 07:00 IntakeIntake Total 1200 ml 800 ml BalanceBalance 1200 ml 800 ml Exam GENERAL: Well-nourished well-developed gentleman comfortable at rest VITAL SIGNS: per chart NECK: Supple. No JVD or lymphadenopathy. CARDIAC EXAM: S1, S2. No added sounds or murmurs. CHEST: Diminished air entry bilaterally with expiratory wheezing ABDOMEN: Soft, nontender. No guarding or rebound. EXTREMITIES: No cyanosis, clubbing or edema. NEUROLOGIC: Generalized weakness. No focal deficits. Vent Setting Fraction of Inspired Oxygen pe: 28 Results/Medications Result Diagram: 12/14/18 0508 12/14/18 0508 Results 24 hrs Laboratory Tests Test 12/14/18 05:08 White Blood Count 16.2 H Red Blood Count 4.53 L Hemoglobin 13.7 L Hematocrit 40.9 L Mean Corpuscular Volume 90.3 Mean Corpuscular Hemoglobin 30.2 Mean Corpuscular Hemoglobin Concent 33.5 Red Cell Distribution Width 13.9 Platelet Count 242 Mean Platelet Volume 10.3 Immature Granulocytes % 0.600 H Neutrophils % 89.7 H Lymphocytes % 5.6 L Monocytes % 4.0 Eosinophils % 0.0 Basophils % 0.1 Nucleated Red Blood Cells % 0.0 Immature Granulocytes # 0.100 H Neutrophils # 14.6 H Lymphocytes # 0.9 Monocytes # 0.7 Eosinophils # 0.0 Basophils # 0.0 Nucleated Red Blood Cells # 0.0 Sodium Level 141 Potassium Level 4.1 Chloride Level 108 Carbon Dioxide Level 22 Anion Gap 11 Blood Urea Nitrogen 17 Creatinine 0.82 Est Glomerular Filtrat Rate mL/min > 60 Glucose Level 147 Calcium Level 8.7 Magnesium Level 2.1 Creatine Kinase 688 H Thyroid Stimulating Hormone (TSH) 0.875 Medications Current Medications Albuterol/ Ipratropium (Duoneb) 3 ml Q4H RESP THERAPY HHN Last administered on 12/14/18 10:52; Admin Dose 3 ML; Start 12/12/18 at 21:00 Amlodipine Besylate (Norvasc) 10 mg DAILY PO Last administered on 12/14/18 08:00; Admin Dose 10 MG; Start 12/12/18 at 21:00 Lisinopril (Zestril) 10 mg DAILY PO Last administered on 12/14/18 08:00; Admin Dose 10 MG; Start 12/13/18 at 09:00 Guaifenesin/ Codeine Phosphate (Robitussin Ac Liquid Cup) 5 ml Q4H PRN PO cough Last administered on 12/12/18 21:39; Admin Dose 5 ML; Start 12/12/18 at 21:00 Phenol (Cepastat Lozenge) 1 lozenge Q1H PRN MT pain Last administered on 12/12/18 21:38; Admin Dose 1 LOZENGE; Start 12/12/18 at 21:00 Allopurinol (Zyloprim) 300 mg DAILY PO Last administered on 12/14/18 08:00; Admin Dose 300 MG; Start 12/13/18 at 09:00 Acetaminophen (Tylenol Tab) 650 mg Q4H PRN PO MILD PAIN(1-3)OR ELEVATED TEMP; Start 12/12/18 at 21:00 Potassium Chloride 10 meq/ Sodium Chloride 1,005 ml @ 100 mls/hr Q10H3M IV Last administered on 12/14/18 06:36; Admin Dose 100 MLS/HR; Start 12/12/18 at 22:00 Ceftriaxone Sodium 50 ml @ 100 mls/hr Q24H IVPB Last administered on 12/14/18 08:00; Admin Dose 100 MLS/HR; Start 12/13/18 at 09:00 Enoxaparin Sodium (Lovenox) 40 mg DAILY SC Last administered on 12/14/18 08:16; Admin Dose 40 MG; Start 12/13/18 at 09:00 Latanoprost (Xalatan) 1 drop HS BOTH EYES Last administered on 12/13/18 20:38; Admin Dose 1 DROP; Start 12/12/18 at 21:00 Fluticasone/ Vilanterol (Breo Ellipta 100-25 Mcg Inh) 1 inh DAILY INH Last administered on 12/14/18at 08:00; Admin Dose 1 INH; Start 12/13/18 at 10:30 Methylprednisolone Sodium Succinate (Solu-Medrol) 40 mg Q6 IV Last administered on 12/14/18at 06:13; Admin Dose 40 MG; Start 12/13/18 at 18:00 Assessment/Plan Hospital Course (Demo Recall) Assessment 1. Acute hypoxemic respiratory failure secondary to acute bronchitis possible infective origin 2. History of prior psychiatric disorder Plan 1. Continue supplemental O2 2. Continue bronchodilators and steroids 3. Continue antibiotics, check procalcitonin ALEX DEJESUS MD, [facility] December 14, 2018 11:54
--- NOTE | 2018-12-14 13:31 | PN ---
Date/Time of Note Date/Time of Note DATE: 12/14/18 TIME: 13:25 Assessment/Plan VTE Prophylaxis Risk score (from Ns)>0 risk: 1 SCD applied (from Ns): No SCD contraindicated: low risk/ambulating Pharmacological prophylaxis: LMWH Lines/Catheters IV Catheter Type (from [facility]): Peripheral IV Assessment/Plan Hospital Course A: fever- unclear source, afebrile now lactic acidosis- r/o sepsis, normal now asthma exacerbation elevated ck with myalgia HTN P: cont hydration cont current abx pending cx results cont resp rx cont iv solumedrol pulm consult cont hold losartan discussed with rheum cont hydration, will eval elevated ck as outpt monitor labs Assessment/Plan A- asthma exacerbation NSVT asx elevated ck with myalgias lactic acidosis fever HTN P: cardiology eval cont resp rx, steroids, abx per pulmonary cont hydration check aldolase cont other rx Result Diagram: 12/14/18 0508 12/14/18 0508 Results 24hrs Laboratory Tests Test 12/14/18 05:08 White Blood Count 16.2 H Red Blood Count 4.53 L Hemoglobin 13.7 L Hematocrit 40.9 L Mean Corpuscular Volume 90.3 Mean Corpuscular Hemoglobin 30.2 Mean Corpuscular Hemoglobin Concent 33.5 Red Cell Distribution Width 13.9 Platelet Count 242 Mean Platelet Volume 10.3 Immature Granulocytes % 0.600 H Neutrophils % 89.7 H Lymphocytes % 5.6 L Monocytes % 4.0 Eosinophils % 0.0 Basophils % 0.1 Nucleated Red Blood Cells % 0.0 Immature Granulocytes # 0.100 H Neutrophils # 14.6 H Lymphocytes # 0.9 Monocytes # 0.7 Eosinophils # 0.0 Basophils # 0.0 Nucleated Red Blood Cells # 0.0 Sodium Level 141 Potassium Level 4.1 Chloride Level 108 Carbon Dioxide Level 22 Anion Gap 11 Blood Urea Nitrogen 17 Creatinine 0.82 Est Glomerular Filtrat Rate mL/min > 60 Glucose Level 147 Calcium Level 8.7 Magnesium Level 2.1 Creatine Kinase 688 H Thyroid Stimulating Hormone (TSH) 0.875 Subjective 24 Hr Interval Summary Free Text/Dictation Appreciate pulmonary consult. Pt feels about the same. Able to do some walking in hallways. Had some atrial tachycardia yesterday and 6 beats of Vtach today. Asx. Still with cough and wheeze. Myalgias unchanged. No cp. Exam/Review of Systems Exam Vitals Vital Signs Date Temp Pulse Resp B/P (MAP) Pulse Ox O2 O2 Flow FiO2 Time Delivery Rate 12/14/18 86 12:12 12/14/18 97.3 18 150/81 98 Nasal 2.0 11:27 (104) Cannula 12/12/18 28 17:50 Intake and Output 12/13/18 12/13/18 12/14/18 1515:00 23:00 07:00 IntakeIntake Total 1200 ml 800 ml BalanceBalance 1200 ml 800 ml Exam gen- nad, nontoxic lungs- diffuse wheeze heart- RRR abd- +BS, soft, nontender. ext- no cce Results Results 24hrs Laboratory Tests Test 12/14/18 05:08 White Blood Count 16.2 H Red Blood Count 4.53 L Hemoglobin 13.7 L Hematocrit 40.9 L Mean Corpuscular Volume 90.3 Mean Corpuscular Hemoglobin 30.2 Mean Corpuscular Hemoglobin Concent 33.5 Red Cell Distribution Width 13.9 Platelet Count 242 Mean Platelet Volume 10.3 Immature Granulocytes % 0.600 H Neutrophils % 89.7 H Lymphocytes % 5.6 L Monocytes % 4.0 Eosinophils % 0.0 Basophils % 0.1 Nucleated Red Blood Cells % 0.0 Immature Granulocytes # 0.100 H Neutrophils # 14.6 H Lymphocytes # 0.9 Monocytes # 0.7 Eosinophils # 0.0 Basophils # 0.0 Nucleated Red Blood Cells # 0.0 Sodium Level 141 Potassium Level 4.1 Chloride Level 108 Carbon Dioxide Level 22 Anion Gap 11 Blood Urea Nitrogen 17 Creatinine 0.82 Est Glomerular Filtrat Rate mL/min > 60 Glucose Level 147 Calcium Level 8.7 Magnesium Level 2.1 Creatine Kinase 688 H Thyroid Stimulating Hormone (TSH) 0.875 Medications Medication Current Medications Albuterol/ Ipratropium (Duoneb) 3 ml Q4H RESP THERAPY HHN Last administered on 12/14/18at 10:52; Admin Dose 3 ML; Start 12/12/18 at 21:00 Amlodipine Besylate (Norvasc) 10 mg DAILY PO Last administered on 12/14/18at 08:00; Admin Dose 10 MG; Start 12/12/18 at 21:00 Lisinopril (Zestril) 10 mg DAILY PO Last administered on 12/14/18 08:00; Admin Dose 10 MG; Start 12/13/18 at 09:00 Guaifenesin/ Codeine Phosphate (Robitussin Ac Liquid Cup) 5 ml Q4H PRN PO cough Last administered on 12/12/18 21:39; Admin Dose 5 ML; Start 12/12/18 at 21:00 Phenol (Cepastat Lozenge) 1 lozenge Q1H PRN MT pain Last administered on 12/12/18 21:38; Admin Dose 1 LOZENGE; Start 12/12/18 at 21:00 Allopurinol (Zyloprim) 300 mg DAILY PO Last administered on 12/14/18 08:00; Admin Dose 300 MG; Start 12/13/18 at 09:00 Acetaminophen (Tylenol Tab) 650 mg Q4H PRN PO MILD PAIN(1-3)OR ELEVATED TEMP; Start 12/12/18 at 21:00 Potassium Chloride 10 meq/ Sodium Chloride 1,005 ml @ 100 mls/hr Q10H3M IV Last administered on 12/14/18 06:36; Admin Dose 100 MLS/HR; Start 12/12/18 at 22:00 Ceftriaxone Sodium 50 ml @ 100 mls/hr Q24H IVPB Last administered on 12/14/18 08:00; Admin Dose 100 MLS/HR; Start 12/13/18 at 09:00 Enoxaparin Sodium (Lovenox) 40 mg DAILY SC Last administered on 12/14/18 08:16; Admin Dose 40 MG; Start 12/13/18 at 09:00 Latanoprost (Xalatan) 1 drop HS BOTH EYES Last administered on 12/13/18 20:38; Admin Dose 1 DROP; Start 12/12/18 at 21:00 Fluticasone/ Vilanterol (Breo Ellipta 100-25 Mcg Inh) 1 inh DAILY INH Last adm inistered on 12/14/18 08:00; Admin Dose 1 INH; Start 12/13/18 at 10:30 Methylprednisolone Sodium Succinate (Solu-Medrol) 40 mg Q6 IV Last administered on 12/14/18 12:05; Admin Dose 40 MG; Start 12/13/18 at 18:00 BRANDY BENITEZ MD December 14, 2018 13:31
[2018-12-14] MEDS: LATANOPROST 0.005% 2.5 ML OPH BOTH EYES SCH (20:54)
--- NOTE | 2018-12-14 21:57 | CONS ---
Assessment/Plan Assessment/Plan Hospital Course (Demo Recall) PVCs/NSVT- one run, no symptoms. no h/o heart disease or arrhythmia. ok to cont to monitor, obtain echo to r/o structural disease, monitor electrolytes. follow ekg/qt interval Asthma- exacerbation with bronchitis. cont tx per pcp/pulm HTN- hx, controlled Consultation Date/Type/Reason Admit Date/Time December 12, 2018 at 15:27 Date of Consultation: December 14, 2018 Type of Consult cardiology Reason for Consultation v. tach Requesting Provider: BRANDY BENITEZ MD Date/Time of Note DATE: 12/14/18 TIME: 21:53 Hx of Present Illness Pt is a 53 y.o. man with h/o of asthma. Who presented with < 1 week of wheeze, cough with yellow sputum myalgia, fever. Pt started on steroids/antibiotics for asthma/bronchitis. Pt states stable, but not improved. denies any chest pain/pressure, palpitations, dizziness, fainting. Denies any pnd, orthopnea, edema. On tele pt with run of 6 beats NSVT this am, denies any symptoms at the time. Pt denies any previous arrhythmia or cardiac history. EKG at admit with NSR Constitutional: No no complaints, No improved, No chills, No diaphoresis, No disoriented, No febrile, No poor po, No requiring IVF, No requiring O2, No other Eyes: No no complaints, No pain, No discharge, No redness, No visual change, No other ENT: No no complaints, No bleeding, No pain, No congestion, No discharge, No dysphagia, No sore throat, No other Respiratory: cough, shortness of breath, sputum, wheezing Cardiovascular: No no complaints, No chest pain, No edema, No lightheadedness, No orthopenea, No palpitations, No paroxysmal nocturnal dyspnea, No other Gastrointestinal: No no complaints, No pain, No blood, No constipation, No decreased appetite, No diarrhea, No flatus, No nausea, No passing stool, No vomiting, No other Genitourinary: No no complaints, No bleeding, No dysuria, No discharge, No flank pain, No hematuria, No other Musculoskeletal: No no complaints, No back pain, No bone/joint pain, No neck pain, No restricted range of motion, No swelling, No other Skin: No no complaints, No bruising, No erythema, No laceration, No pruritis, No rash, No skin lesions, No other Neurologic: No no complaints, No confusion, No dizziness, No focal-weakness, No headache, No syncope, No seizure, No other Psychological: no complaints, nl mood/affect Immunologic: No no complaints, No immunodeficiency, No pruritis, No rhinitis, No urticaria, No other Past Medical History 1. History of asthma 2. Gout 3. Glaucoma 4. Hypertension Home Meds Reported Medications Albuterol Sulfate* (Ventolin HFA*) 18 Gm Hfa.aer.ad, 2 PUFF INHALATION Q4H, #1 INHALER 12/12/18 Losartan Potassium* (Losartan Potassium*) 100 Mg Tablet, 100 MG PO DAILY, TAB 12/12/18 Amlodipine Besylate* (Amlodipine Besylate*) 10 Mg Tablet, 10 MG PO DAILY, #30 TAB 12/12/18 Latanoprost (Latanoprost) 2.5 Ml Drops, 1 DROP BOTH EYES QHS, #1 BOTTLE 12/12/18 Budesonide-Formoterol Fumarate* (Symbicort*) 80-4.5 Mcg Hfa.aer.ad, 2 PUFF INHALATION BID, BOTTLE 12/12/18 Discontinued Reported Medications Budesonide-Formoterol Fumarate* (Symbicort*) 80-4.5 Inha, INHALATION BID, #1 EACH 09/02/15 Losartan Potassium* (Cozaar*) 100 Mg Tablet, 100 MG PO DAILY, TAB 07/23/14 Allopurinol* (Zyloprim*) 300 Mg Tablet, 300 MG PO DAILY, TAB 01/21/14 Amlodipine Besylate* (Norvasc*) 10 Mg Tablet, 10 MG PO DAILY, TAB 01/21/14 Discontinued Scripts Albuterol Sulfate* (Ventolin HFA*) 18 Gm Hfa.aer.ad, 2 PUFF INHALATION Q4H, #1 INHALER Prov:DIANE PALMA PA-C 08/23/16 Prednisone* (Prednisone*) 20 Mg Tab, 40 MG PO DAILY for 4 Days, TAB Prov:DIANE PALMA PA-C 08/23/16 Docusate Sodium* (Colace*) 100 Mg Capsule, 100 MG PO BID, #60 CAP Prov:BUNNY AVERY PA-C 07/28/16 Promethazine/Phenyleph/Codeine (Kufsbpgfxgbh-JO-Jkaapmi Syrup) 118 Ml Syrup, 1 TSP PO Q6, #4 OZ Prov:BUNNY AVERY PA-C 07/28/16 Albuterol Sulfate* (Proair HFA*) 8.5 Gm Hfa.aer.ad, 2 PUFF INH Q4, #1 INHALER Prov:ANDREA AGUIRRE PA-C 06/15/16 Prednisone* (Prednisone*) 50 Mg Tablet, 50 MG PO DAILY for 3 Days, TAB Prov:ANDREA AGUIRRE PA-C 06/15/16 Ibuprofen* (Motrin*) 600 Mg Tab, 600 MG PO Q6, #20 TAB Prov:LEANN POLO MD 11/03/15 Albuterol/Ipratropium* (Combivent Respimat*) 20-100 Mcg/Inh - 4 Gm Aer.w.adap, 1 PUFF INHALATION QID, #1 INHALER Prov:CLARIBEL LAUREANO MD 09/02/15 Doxycycline Monohydrate* (Doxycycline Monohydrate*) 100 Mg Tablet, 100 MG PO BID, #10 TAB Prov:CLARIBEL LAUREANO MD 09/02/15 Prednisone* (Prednisone*) 50 Mg Tablet, 50 MG PO ONCE, #5 TAB Prov:CLARIBEL LAUREANO MD 09/02/15 Medications Current Medications Albuterol/ Ipratropium (Duoneb) 3 ml Q4H RESP THERAPY HHN Last administered on 12/14/18at 20:27; Admin Dose 3 ML; Start 12/12/18 at 21:00 Amlodipine Besylate (Norvasc) 10 mg DAILY PO Last administered on 12/14/18at 08:00; Admin Dose 10 MG; Start 12/12/18 at 21:00 Lisinopril (Zestril) 10 mg DAILY PO Last administered on 12/14/18at 08:00; Admin Dose 10 MG; Start 12/13/18 at 09:00 Guaifenesin/ Codeine Phosphate (Robitussin Ac Liquid Cup) 5 ml Q4H PRN PO cough Last administered on 12/12/18at 21:39; Admin Dose 5 ML; Start 12/12/18 at 21:00 Phenol (Cepastat Lozenge) 1 lozenge Q1H PRN MT pain Last administered on 12/12/18 21:38; Admin Dose 1 LOZENGE; Start 12/12/18 at 21:00 Allopurinol (Zyloprim) 300 mg DAILY PO Last administered on 12/14/18 08:00; Admin Dose 300 MG; Start 12/13/18 at 09:00 Acetaminophen (Tylenol Tab) 650 mg Q4H PRN PO MILD PAIN(1-3)OR ELEVATED TEMP Last administered on 12/14/18 19:59; Admin Dose 650 MG; Start 12/12/18 at 21:00 Potassium Chloride 10 meq/ Sodium Chloride 1,005 ml @ 75 mls/hr [id number] IV Last administered on 12/14/18 17:41; Admin Dose 75 MLS/HR; Start 12/12/18 at 22:00 Ceftriaxone Sodium 50 ml @ 100 mls/hr Q24H IVPB Last administered on 12/14/18 08:00; Admin Dose 100 MLS/HR; Start 12/13/18 at 09:00 Enoxaparin Sodium (Lovenox) 40 mg DAILY SC Last administered on 12/14/18 08:16; Admin Dose 40 MG; Start 12/13/18 at 09:00 Latanoprost (Xalatan) 1 drop HS BOTH EYES Last administered on 12/14/18 20:54; Admin Dose 1 DROP; Start 12/12/18 at 21:00 Fluticasone/ Vilanterol (Breo Ellipta 100-25 Mcg Inh) 1 inh DAILY INH Last administered on 12/14/18 08:00; Admin Dose 1 INH; Start 12/13/18 at 10:30 Methylprednisolone Sodium Succinate (Solu-Medrol) 40 mg Q6 IV Last administered on 12/14/18 17:03; Admin Dose 40 MG; Start 12/13/18 at 18:00 Allergies: Coded Allergies: No Known Allergies (Verified Allergy, Unknown, 12/12/18) Past Surgical History Past Surgical Hx: other (abscess drainage) Family History Significant Family History: other (no high risk cad) Social History Alcohol Use: none Smoking Status: Never smoker Drug Use: none Exam/Review of Systems Exam Vitals Vital Signs Date Temp Pulse Resp B/P (MAP) Pulse Ox O2 O2 Flow FiO2 Time Delivery Rate 12/14/18 2.0 20:27 12/14/18 88 20 94 Nasal 20:27 Cannula 12/14/18 98.0 152/75 20:00 (100) 12/12/18 28 17:50 Intake and Output 12/13/18 12/13/18 12/14/18 1515:00 23:00 07:00 IntakeIntake Total 1200 ml 800 ml BalanceBalance 1200 ml 800 ml Constitutional: alert, oriented, well developed Psych: no complaints, nl mood/affect; No anxiety Eyes: nl conjunctiva ENMT: nl external ears & nose, mucosa pink and moist Neck: supple, non-tender; No jvd, No bruits Respiratory: congested cough, wheezing Cardiovascular: regular rate and rhythm, nl pulses, systolic murmur; No bruits, No diastolic murmur, No edema, No irregular rhythm Gastrointestinal: soft, non-tender Musculoskeletal: nl extremities to inspection, nl gait and stance Extremities: normal pulses Neurological: [employer]PONSIBILITY II-XII intact, nl mental status Results Result Diagram: 12/14/18 0508 12/14/18 0508 Results 24hrs Laboratory Tests Test 12/14/18 05:08 12/14/18 13:49 White Blood Count 16.2 H Red Blood Count 4.53 L Hemoglobin 13.7 L Hematocrit 40.9 L Mean Corpuscular Volume 90.3 Mean Corpuscular Hemoglobin 30.2 Mean Corpuscular Hemoglobin Concent 33.5 Red Cell Distribution Width 13.9 Platelet Count 242 Mean Platelet Volume 10.3 Immature Granulocytes % 0.600 H Neutrophils % 89.7 H Lymphocytes % 5.6 L Monocytes % 4.0 Eosinophils % 0.0 Basophils % 0.1 Nucleated Red Blood Cells % 0.0 Immature Granulocytes # 0.100 H Neutrophils # 14.6 H Lymphocytes # 0.9 Monocytes # 0.7 Eosinophils # 0.0 Basophils # 0.0 Nucleated Red Blood Cells # 0.0 Sodium Level 141 Potassium Level 4.1 Chloride Level 108 Carbon Dioxide Level 22 Anion Gap 11 Blood Urea Nitrogen 17 Creatinine 0.82 Est Glomerular Filtrat Rate mL/min > 60 Glucose Level 147 Calcium Level 8.7 Magnesium Level 2.1 Creatine Kinase 688 H Thyroid Stimulating Hormone (TSH) 0.875 Procalcitonin 0.11 H Imaging Imaging cxr report reviewed in emr Medications Medication Current Medications Albuterol/ Ipratropium (Duoneb) 3 ml Q4H RESP THERAPY HHN Last administered on 12/14/18 20:27; Admin Dose 3 ML; Start 12/12/18 at 21:00 Amlodipine Besylate (Norvasc) 10 mg DAILY PO Last administered on 12/14/18 08:00; Admin Dose 10 MG; Start 12/12/18 at 21:00 Lisinopril (Zestril) 10 mg DAILY PO Last administered on 12/14/18 08:00; Admin Dose 10 MG; Start 12/13/18 at 09:00 Guaifenesin/ Codeine Phosphate (Robitussin Ac Liquid Cup) 5 ml Q4H PRN PO cough Last administered on 12/12/18 21:39; Admin Dose 5 ML; Start 12/12/18 at 21:00 Phenol (Cepastat Lozenge) 1 lozenge Q1H PRN MT pain Last administered on 12/12/18 21:38; Admin Dose 1 LOZENGE; Start 12/12/18 at 21:00 Allopurinol (Zyloprim) 300 mg DAILY PO Last administered on 12/14/18 08:00; Admin Dose 300 MG; Start 12/13/18 at 09:00 Acetaminophen (Tylenol Tab) 650 mg Q4H PRN PO MILD PAIN(1-3)OR ELEVATED TEMP Last administered on 12/14/18 19:59; Admin Dose 650 MG; Start 12/12/18 at 21:00 Potassium Chloride 10 meq/ Sodium Chloride 1,005 ml @ 75 mls/hr [id number] IV Las t administered on 12/14/18 17:41; Admin Dose 75 MLS/HR; Start 12/12/18 at 22:00 Ceftriaxone Sodium 50 ml @ 100 mls/hr Q24H IVPB Last administered on 12/14/18 08:00; Admin Dose 100 MLS/HR; Start 12/13/18 at 09:00 Enoxaparin Sodium (Lovenox) 40 mg DAILY SC Last administered on 12/14/18 08:16; Admin Dose 40 MG; Start 12/13/18 at 09:00 Latanoprost (Xalatan) 1 drop HS BOTH EYES Last administered on 12/14/18 20:54; Admin Dose 1 DROP; Start 12/12/18 at 21:00 Fluticasone/ Vilanterol (Breo Ellipta 100-25 Mcg Inh) 1 inh DAILY INH Last administered on 12/14/18at 08:00; Admin Dose 1 INH; Start 12/13/18 at 10:30 Methylprednisolone Sodium Succinate (Solu-Medrol) 40 mg Q6 IV Last administered on 12/14/18at 17:03; Admin Dose 40 MG; Start 12/13/18 at 18:00 MARIE MAYS December 14, 2018 21:57
--- NOTE | 2018-12-14 22:03 | RADRPT ---
Echocardiogram Report Patient Name: TAMIKA DAWKINSPatient ID: [id number] : 1965 (53y 3m)Study Date: 12/14/2018 2:07:09 PM Gender: MAccession #: [id number] Tech: [employer] Ch[employer] [facility] [[email or web address]] Location: 626-A Ref.Physician: GELACIO MAYS Height(Cm): BSA: Weight(Kg): Quality: AdequateOrder Physician: GELACIO MAYS Account #: Procedures: Echocardiographic Report: Transthoracic echocardiogram with complete 2D, M-Mode, and doppler examination. Indications: NSVT. Measurements: 2D/M Mode Doppler Measurement Value Normal Range Measurement Value Normal Range LVIDd 2D 5.2 [ 4.2 - 5.8 ] cm AV Peak Merrick 1.8 [ 100.0 - 170.0 ] cm/sec LVIDs 2D 2.8 [ 2.5 - 4.0 ] cm AV Peak PG 13.0 [ 2.0 - 9.0 ] mmHg LVPWd 2D 1.1 [ 0.6 - 1.0 ] cm LVOT Peak Merrick 1.1 [ 70.0 - 110.0 ] cm/sec IVSd 2D 1.4 [ 0.6 - 1.0 ] cm LVOT Peak PG 5.0 [ 2.0 - 6.0 ] mmHg AoR Diam 2D 2.8 [ 2.6 - 3.4 ] cm MV E Peak Merrick 1.0 [ 60.0 - 130.0 ] cm/sec EDV 2D 127.0 [ 62.0 - 150.0 ] ml MV A Peak Merrick 0.7 [ 100.0 - 120.0 ] cm/sec ESV 2D 29.6 [ 21.0 - 61.0 ] ml MV E/A 1.5 [ 0.8 - 1.5 ] ratio EF 2D 76.7 [ 52.0 - 72.0 ] percent MV Decel Time 215 [ 104 - 258 ] msec LA Dimen 2D 4.2 [ 3.0 - 4.0 ] cm Lat E` Merrick 0.1 [ 10.0 - 15.0 ] cm/sec Lateral E/E` 9.4 [ 1.0 - 2.0 ] ratio MV E/A 1.5 [ 0.8 - 1.5 ] ratio TR Peak Merrick 1.9 [ 100.0 - 280.0 ] cm/sec TR Peak PG 14.0 mmHg RVSP 17.0 [ 10.0 - 36.0 ] mmHg Findings: Left Ventricle: Normal left ventricular systolic function. Normal left ventricular cavity size. Mild asymmetric septal hypertrophy no outflow obstruction. Ejection fraction is visually estimated at 65 %. Tissue Doppler/Mitral Doppler indices are within normal limits. Right Ventricle: Normal right ventricular size. Normal right ventricular systolic function. Left Atrium: There is mild enlargement of left atrium. Right Atrium: The right atrium is normal in size. Mitral Valve: Normal appearance of the mitral valve. Mild mitral annular calcification. Trace mitral regurgitation. Aortic Valve: No significant aortic stenosis or insufficiency. Normal trileaflet aortic valve structure. Tricuspid Valve: Normal appearance of the tricuspid valve. Unable to obtain RVSP due to minimal presence of tricuspid regurgitation. There is trace tricuspid regurgitation. Pulmonic Valve: Normal pulmonic valve appearance. Pericardium: Normal pericardium with no significant pericardial effusion. Aorta: Normal aortic root. IVC: Normal size and normal respiratory collapse consistent with normal right atrial pressure. Conclusions: Normal left ventricular systolic function. Normal left ventricular cavity size. Mild asymmetric septal hypertrophy no outflow obstruction. Ejection fraction is visually estimated at 65 %. Tissue Doppler/Mitral Doppler indices are within normal limits. Normal right ventricular size. Normal right ventricular systolic function. There is mild enlargement of left atrium. No significant aortic stenosis or insufficiency. Normal trileaflet aortic valve structure. Normal appearance of the tricuspid valve. Unable to obtain RVSP due to minimal presence of tricuspid regurgitation. There is trace tricuspid regurgitation. Normal pericardium with no significant pericardial effusion. Normal aortic root. Normal size and normal respiratory collapse consistent with normal right atrial pressure. No Vegetation, masses, or thrombi seen. Electronically Signed By: Gelacio Mays 2018-12-14 22:02:29 PDT
[2018-12-15] VITALS (11 sets, daily range): BP systolic 125–154; BP diastolic 69–87; PULSE 65–83; RESP 18–20
[2018-12-15] MEDS: METHYLPREDNISOLONE 40 MG INJ IV SCH ×4 (00:08→17:06)
[2018-12-15] MEDS: ALBUTEROL/IPRATROPIUM (NEB) 3 ML AMP HHN SCH ×6 (01:04→20:56)
[2018-12-15] MEDS: POTASSIUM CHLORIDE 10 MEQ in SOD CHLORIDE 0.9% 1,000 ML IV SCH ×2 (03:36→06:09)
[2018-12-15] MEDS: FLUTICASONE/VILANTEROL 100-25 INH SCH (08:15)
[2018-12-15] MEDS: CEFTRIAXONE 1 GM/50 ML (PMX) 50 ML IVPB SCH (08:15)
[2018-12-15] MEDS: ALLOPURINOL 300 MG TAB PO SCH (08:15)
[2018-12-15] MEDS: AMLODIPINE 10 MG TAB PO SCH (08:15)
[2018-12-15] MEDS: LISINOPRIL 10 MG TAB PO SCH (08:15)
[2018-12-15] MEDS: ENOXAPARIN 40 MG/0.4 ML SYG SC SCH (08:19)
--- NOTE | 2018-12-15 09:04 | CONS ---
Assessment/Plan Assessment/Plan Assessment/Plan (Daily) Assessment and recommendations; 1. Patient admitted with asthma exacerbation with acute bronchitis without any significant interval improvement despite aggressive bronchodilator and systemic steroid treatment. 2. History of gout and hypertension. Continue current supportive care. Consultation Date/Type/Reason Admit Date/Time December 12, 2018 at 15:27 Initial Consult Date 12/14/18 Type of Consult Pulmonary Patient is a 53-year-old [place] gentleman who came into the hospital yesterday with a 10-day history of coughing sputum production wheezing and chest congestion. The patient does have a history of asthma. He denies any high fever, body aches or myalgias. Does complain of mild sore throat. Denies any nausea vomiting. Past medical history; 1. History of asthma 2. Gout 3. Glaucoma 4. Hypertension Medications; reviewed Allergies; none Social history; noncontributory Family history; he is single, no show any asthma in the family. Occupational history; patient is on disability. Review of systems; denies any headache, visual changes, sinus symptoms. Complains of mild sore throat. Denies any fever or chills. Complains of wheezing, cough, production of yellow sputum. Denies any hemoptysis. Denies any abdominal pain, nausea vomiting. Any melena or hematochezia. Denies any edema. Any urinary symptoms. General exam; middle-aged male, awake alert, currently no distress. Requesting Provider: BRANDY BENITEZ MD Date/Time of Note DATE: 12/15/18 TIME: 09:03 24 HR Interval Summary Free Text/Dictation Patient's condition is unchanged. Still complains of chest congestion and wheezing. But denies any shortness of breath. General exam; middle-aged male, awake alert, ambulatory in the hospital. Currently no distress. On room air. Exam/Review of Systems Exam Vitals Vital Signs Date Temp Pulse Resp B/P (MAP) Pulse Ox O2 O2 Flow FiO2 Time Delivery Rate 12/15/18 78 08:15 12/15/18 18 96 Nasal 2.0 08:00 Cannula 12/15/18 98.5 154/86 07:08 (108) 12/12/18 28 17:50 Intake and Output 12/14/18 12/14/18 12/15/18 1515:00 23:00 07:00 IntakeIntake Total 50 ml 3505 ml 2125 ml BalanceBalance 50 ml 3505 ml 2125 ml Exam HEENT exam; supple neck, no JVD. No lymphadenopathy. Patient has fair dentition. No neck masses. Chest exam; bilateral wheezing. S1-S2 audible, no murmurs. Regular rhythm. Abdomen exam; soft, nontender. No organomegaly. Bowel sounds are audible. Extremity exam; no peripheral edema clubbing. Pulses 2+. DOUBLE END TRIMMER exam; no focal deficit. Results Result Diagram: 12/15/1852412/15/18524 Results 24hrs Laboratory Tests Test 12/14/18 13:49 12/15/18 05:25 Procalcitonin 0.11 H White Blood Count 13.6 H Red Blood Count 4.39 L Hemoglobin 13.3 L Hematocrit 40.0 L Mean Corpuscular Volume 91.1 Mean Corpuscular Hemoglobin 30.3 Mean Corpuscular Hemoglobin Concent 33.3 Red Cell Distribution Width 13.6 Platelet Count 256 Mean Platelet Volume 10.3 Immature Granulocytes % 1.500 H Neutrophils % 89.8 H Lymphocytes % 4.8 L Monocytes % 3.9 Eosinophils % 0.0 Basophils % 0.0 Nucleated Red Blood Cells % 0.0 Immature Granulocytes # 0.210 H Neutrophils # 12.2 H Lymphocytes # 0.7 L Monocytes # 0.5 Eosinophils # 0.0 Basophils # 0.0 Nucleated Red Blood Cells # 0.0 Sodium Level 139 Potassium Level 4.1 Chloride Level 106 Carbon Dioxide Level 24 Anion Gap 9 Blood Urea Nitrogen 16 Creatinine 0.86 Est Glomerular Filtrat Rate mL/min > 60 Glucose Level 147 Calcium Level 8.5 Phosphorus Level 4.2 Magnesium Level 2.3 Medications Medication Current Medications Albuterol/ Ipratropium (Duoneb) 3 ml Q4H RESP THERAPY HHN Last administered on 12/15/18 08:00; Admin Dose 3 ML; Start 12/12/18 at 21:00 Amlodipine Besylate (Norvasc) 10 mg DAILY PO Last administered on 12/15/18 08:15; Admin Dose 10 MG; Start 12/12/18 at 21:00 Lisinopril (Zestril) 10 mg DAILY PO Last administered on 12/15/18 08:15; Admin Dose 10 MG; Start 12/13/18 at 09:00 Guaifenesin/ Codeine Phosphate (Robitussin Ac Liquid Cup) 5 ml Q4H PRN PO cough Last administered on 12/12/18 21:39; Admin Dose 5 ML; Start 12/12/18 at 21:00 Phenol (Cepastat Lozenge) 1 lozenge Q1H PRN MT pain Last administered on 12/12/18 21:38; Admin Dose 1 LOZENGE; Start 12/12/18 at 21:00 Allopurinol (Zyloprim) 300 mg DAILY PO Last administered on 12/15/18 08:15; Admin Dose 300 MG; Start 12/13/18 at 09:00 Acetaminophen (Tylenol Tab) 650 mg Q4H PRN PO MILD PAIN(1-3)OR ELEVATED TEMP Last administered on 12/14/18 19:59; Admin Dose 650 MG; Start 12/12/18 at 21:00 Potassium Chloride 10 meq/ Sodium Chloride 1,005 ml @ 75 mls/hr [id number] IV Last administered on 12/15/18 06:09; Admin Dose 75 MLS/HR; Start 12/12/18 at 22:00 Ceftriaxone Sodium 50 ml @ 100 mls/hr Q24H IVPB Last administered on 12/15/18 08:15; Admin Dose 100 MLS/HR; Start 12/13/18 at 09:00 Enoxaparin Sodium (Lovenox) 40 mg DAILY SC Last administered on 12/15/18 08:19; Admin Dose 40 MG; Start 12/13/18 at 09:00 Latanoprost (Xalatan) 1 drop HS BOTH EYES Last administered on 12/14/18 20:54; Admin Dose 1 DROP; Start 12/12/18 at 21:00 Fluticasone/ Vilanterol (Breo Ellipta 100-25 Mcg Inh) 1 inh DAILY INH Last administered on 12/15/18 08:15; Admin Dose 1 INH; Start 12/13/18 at 10:30 Methylprednisolone Sodium Succinate (Solu-Medrol) 40 mg Q6 IV Last administered on 12/15/18 06:03; Admin Dose 40 MG; Start 12/13/18 at 18:00 MELISSA ROWE December 15, 2018 09:04
--- NOTE | 2018-12-15 13:07 | PN ---
Date/Time of Note Date/Time of Note DATE: 12/15/18 TIME: 13:03 Assessment/Plan VTE Prophylaxis Risk score (from Ns)>0 risk: 3 SCD applied (from Ns): No SCD contraindicated: low risk/ambulating Pharmacological prophylaxis: LMWH Lines/Catheters IV C[facility] Type (from [facility] Peripheral IV Assessment/Plan Hospital Course A: fever- unclear source, afebrile now lactic acidosis- r/o sepsis, normal now asthma exacerbation elevated ck with myalgia HTN P: cont hydration cont current abx pending cx results cont resp rx cont iv solumedrol pulm consult cont hold losartan discussed with rheum cont hydration, will eval elevated ck as outpt monitor labs Assessment/Plan A: asthma exacerbation NSVT lactic acidosis elevated ck HTN fever P: cont resp rx, steroids, abx per pulm cont hydration monitor follow labs Result Diagram: 12/15/1825 12/15/18524 Results 24hrs Laboratory Tests Test 12/14/18 13:49 12/15/18 05:25 Procalcitonin 0.11 H White Blood Count 13.6 H Red Blood Count 4.39 L Hemoglobin 13.3 L Hematocrit 40.0 L Mean Corpuscular Volume 91.1 Mean Corpuscular Hemoglobin 30.3 Mean Corpuscular Hemoglobin Concent 33.3 Red Cell Distribution Width 13.6 Platelet Count 256 Mean Platelet Volume 10.3 Immature Granulocytes % 1.500 H Neutrophils % 89.8 H Lymphocytes % 4.8 L Monocytes % 3.9 Eosinophils % 0.0 Basophils % 0.0 Nucleated Red Blood Cells % 0.0 Immature Granulocytes # 0.210 H Neutrophils # 12.2 H Lymphocytes # 0.7 L Monocytes # 0.5 Eosinophils # 0.0 Basophils # 0.0 Nucleated Red Blood Cells # 0.0 Sodium Level 139 Potassium Level 4.1 Chloride Level 106 Carbon Dioxide Level 24 Anion Gap 9 Blood Urea Nitrogen 16 Creatinine 0.86 Est Glomerular Filtrat Rate mL/min > 60 Glucose Level 147 Calcium Level 8.5 Phosphorus Level 4.2 Magnesium Level 2.3 Subjective 24 Hr Interval Summary Free Text/Dictation Cardiology consult appreciated. Pt feels about the same. Still with cough and wheeze. Skin a bit itchy, wants to shower. No cp, sob, dizziness. Ambulating some in the hallway. Exam/Review of Systems Exam Vitals Vital Signs Date Temp Pulse Resp B/P (MAP) Pulse Ox O2 O2 Flow FiO2 Time Delivery Rate 12/15/18 81 12:09 12/15/18 98.5 18 138/79 96 11:30 (98) 12/15/18 Nasal 2.0 08:00 Cannula 12/12/18 28 17:50 Intake and Output 12/14/18 12/14/18 12/15/18 1515:00 23:00 07:00 IntakeIntake Total 50 ml 3505 ml 2125 ml BalanceBalance 50 ml 3505 ml 2125 ml Exam gen- nad, nontoxic lungs- diffuse wheeze heart- RRR abd- +BS, soft, nontender ext- no edema Results Results 24hrs Laboratory Tests Test 12/14/18 13:49 12/15/18 05:25 Procalcitonin 0.11 H White Blood Count 13.6 H Red Blood Count 4.39 L Hemoglobin 13.3 L Hematocrit 40.0 L Mean Corpuscular Volume 91.1 Mean Corpuscular Hemoglobin 30.3 Mean Corpuscular Hemoglobin Concent 33.3 Red Cell Distribution Width 13.6 Platelet Count 256 Mean Platelet Volume 10.3 Immature Granulocytes % 1.500 H Neutrophils % 89.8 H Lymphocytes % 4.8 L Monocytes % 3.9 Eosinophils % 0.0 Basophils % 0.0 Nucleated Red Blood Cells % 0.0 Immature Granulocytes # 0.210 H Neutrophils # 12.2 H Lymphocytes # 0.7 L Monocytes # 0.5 Eosinophils # 0.0 Basophils # 0.0 Nucleated Red Blood Cells # 0.0 Sodium Level 139 Potassium Level 4.1 Chloride Level 106 Carbon Dioxide Level 24 Anion Gap 9 Blood Urea Nitrogen 16 Creatinine 0.86 Est Glomerular Filtrat Rate mL/min > 60 Glucose Level 147 Calcium Level 8.5 Phosphorus Level 4.2 Magnesium Level 2.3 Medications Medication Current Medications Albuterol/ Ipratropium (Duoneb) 3 ml Q4H RESP THERAPY HHN Last administered on 12/15/18at 08:00; Admin Dose 3 ML; Start 12/12/18 at 21:00 Amlodipine Besylate (Norvasc) 10 mg DAILY PO Last administered on 12/15/18at 08:15; Admin Dose 10 MG; Start 12/12/18 at 21:00 Lisinopril (Zestril) 10 mg DAILY PO Last administered on 12/15/18 08:15; Admin Dose 10 MG; Start 12/13/18 at 09:00 Guaifenesin/ Codeine Phosphate (Robitussin Ac Liquid Cup) 5 ml Q4H PRN PO cough Last administered on 12/12/18 21:39; Admin Dose 5 ML; Start 12/12/18 at 21:00 Phenol (Cepastat Lozenge) 1 lozenge Q1H PRN MT pain Last administered on 12/12 21:38; Admin Dose 1 LOZENGE; Start 12/12/18 at 21:00 Allopurinol (Zyloprim) 300 mg DAILY PO Last administered on 12/15/18 08:15; Admin Dose 300 MG; Start 12/13/18 at 09:00 Acetaminophen (Tylenol Tab) 650 mg Q4H PRN PO MILD PAIN(1-3)OR ELEVATED TEMP Last administered on 12/14/18 19:59; Admin Dose 650 MG; Start 12/12/18 at 21:00 Potassium Chloride 10 meq/ Sodium Chloride 1,005 ml @ 75 mls/hr [id number] IV Last administered on 12/15/18 06:09; Admin Dose 75 MLS/HR; Start 12/12/18 at 22:00 Ceftriaxone Sodium 50 ml @ 100 mls/hr Q24H IVPB Last administered on 12/15/18 08:15; Admin Dose 100 MLS/HR; Start 12/13/18 at 09:00 Enoxaparin Sodium (Lovenox) 40 mg DAILY SC Last administered on 12/15/18 08:19; Admin Dose 40 MG; Start 12/13/18 at 09:00 Latanoprost (Xalatan) 1 drop HS BOTH EYES Last administered on 12/14/18 20:54; Admin Dose 1 DROP; Start 12/12/18 at 21:00 Fluticasone/ Vilanterol (Breo Ellipta 100-25 Mcg Inh) 1 inh DAILY INH Last administered on 12/15/18 08:15; Admin Dose 1 INH; Start 12/13/18 at 10:30 Methylprednisolone Sodium Succinate (Solu-Medrol) 40 mg Q6 IV Last administered on 12/15/18 11:31; Admin Dose 40 MG; Start 12/13/18 at 18:00 BRANDY BENITEZ MD December 15, 2018 13:07
--- NOTE | 2018-12-15 20:25 | RADRPT ---
Vent Rate: 77 bpm RR Interval: 780 msec [place] Interval: 122 msec QRS Duration: 90 msec QT Interval: 392 msec QTC Interval: 444 msec P-R-T Point Clear: 39 - 34 - 30 degrees Sinus rhythm...normal P axis, V-rate 50- 99 Electronically Signed By: Anton Laureano
[2018-12-15] MEDS: LATANOPROST 0.005% 2.5 ML OPH BOTH EYES SCH (20:34)
[2018-12-16] VITALS (11 sets, daily range): BP systolic 126–154; BP diastolic 60–95; PULSE 62–86; RESP 18–19
[2018-12-16] MEDS: METHYLPREDNISOLONE 40 MG INJ IV SCH ×5 (00:23→23:56)
[2018-12-16] MEDS: ALBUTEROL/IPRATROPIUM (NEB) 3 ML AMP HHN SCH ×6 (01:44→21:01)
[2018-12-16] MEDS: ALLOPURINOL 300 MG TAB PO SCH (08:45)
[2018-12-16] MEDS: AMLODIPINE 10 MG TAB PO SCH (08:45)
[2018-12-16] MEDS: LISINOPRIL 10 MG TAB PO SCH (08:45)
[2018-12-16] MEDS: CEFTRIAXONE 1 GM/50 ML (PMX) 50 ML IVPB SCH (08:46)
[2018-12-16] MEDS: FLUTICASONE/VILANTEROL 100-25 INH SCH (08:46)
[2018-12-16] MEDS: ENOXAPARIN 40 MG/0.4 ML SYG SC SCH (09:03)
--- NOTE | 2018-12-16 10:24 | CONS ---
Assessment/Plan Assessment/Plan Assessment/Plan (Daily) Assessment and recommendations; 1. Patient admitted with asthma exacerbation with significant interval improvement. However there is still mild bilateral expiratory wheezing. 2. History of hypertension and gout. 3. History of diabetes. 4. Glaucoma. Continue current supportive care. Start heparin 24 hours. Possibly discharge as well tomorrow. Consultation Date/Type/Reason Admit Date/Time December 12, 2018 at 15:27 Initial Consult Date 12/14/18 Type of Consult Pulmonary Patient is a 53-year-old [place] gentleman who came into the hospital yesterday with a 10-day history of coughing sputum production wheezing and chest congestion. The patient does have a history of asthma. He denies any high fever, body aches or myalgias. Does complain of mild sore throat. Denies any nausea vomiting. Past medical history; 1. History of asthma 2. Gout 3. Glaucoma 4. Hypertension Medications; reviewed Allergies; none Social history; noncontributory Family history; he is single, no show any asthma in the family. Occupational history; patient is on disability. Review of systems; denies any headache, visual changes, sinus symptoms. Complains of mild sore throat. Denies any fever or chills. Complains of wheezing, cough, production of yellow sputum. Denies any hemoptysis. Denies any abdominal pain, nausea vomiting. Any melena or hematochezia. Denies any edema. Any urinary symptoms. General exam; middle-aged male, awake alert, currently no distress. Requesting Provider: BRANDY BENITEZ MD Date/Time of Note DATE: 12/16/18 TIME: 10:22 24 HR Interval Summary Free Text/Dictation Patient's condition is improving. Reports of decreased chest congestion, coughing as well as wheezing. Denies any shortness of breath. General exam; middle-aged male, awake and alert. Currently no distress. On room air. Exam/Review of Systems Exam Vitals Vital Signs Date Temp Pulse Resp B/P (MAP) Pulse Ox O2 O2 Flow FiO2 Time Delivery Rate 12/16/18 75 18 96 21 09:03 12/16/18 97.8 154/95 07:18 (114) 12/16/18 Nasal 2.0 05:13 Cannula Intake and Output 12/15/18 12/15/18 12/16/18 1515:00 23:00 07:00 IntakeIntake Total 850 ml 150 ml OutputOutput Total 1620 ml BalanceBalance -770 ml 150 ml Exam H EENT exam; supple neck, no JVD. No lymphadenopathy. Midline trachea. No thyromegaly. Patient has fair dentition. No neck masses. Chest exam; diminished breath sounds bilaterally. There is mild expiratory wheezing. S1-S2 audible, no murmurs. Regular rhythm. Abdomen exam; soft, nontender. Bowel sounds audible. Extremity exam; no peripheral edema clubbing. STORAGE [employer]CH[employer]ECT exam; no focal deficit. Results Result Diagram: 12/16/18 0426 12/16/18 0426 Results 24hrs Laboratory Tests Test 12/16/18 04:26 White Blood Count 13.0 H Red Blood Count 4.91 Hemoglobin 15.0 Hematocrit 44.7 Mean Corpuscular Volume 91.0 Mean Corpuscular Hemoglobin 30.5 Mean Corpuscular Hemoglobin Concent 33.6 Red Cell Distribution Width 13.1 Platelet Count 285 Mean Platelet Volume 10.1 Immature Granulocytes % 1.800 H Neutrophils % 86.2 H Lymphocytes % 7.5 L Monocytes % 4.2 Eosinophils % 0.0 Basophils % 0.3 Nucleated Red Blood Cells % 0.0 Immature Granulocytes # 0.230 H Neutrophils # 11.2 H Lymphocytes # 1.0 Monocytes # 0.5 Eosinophils # 0.0 Basophils # 0.0 Nucleated Red Blood Cells # 0.0 Sodium Level 140 Potassium Level 4.3 Chloride Level 100 Carbon Dioxide Level 29 Anion Gap 11 Blood Urea Nitrogen 19 Creatinine 0.81 Est Glomerular Filtrat Rate mL/min > 60 Glucose Level 141 Calcium Level 8.8 Creatine Kinase 332 #H Medications Medication Current Medications Albuterol/ Ipratropium (Duoneb) 3 ml Q4H RESP THERAPY HHN Last administered on 12/16/18at 09:02; Admin Dose 3 ML; Start 12/12/18 at 21:00 Amlodipine Besylate (Norvasc) 10 mg DAILY PO Last administered on 12/16/18at 08:45; Admin Dose 10 MG; Start 12/12/18 at 21:00 Lisinopril (Zestril) 10 mg DAILY PO Last administered on 12/16/18at 08:45; Admin Dose 10 MG; Start 12/13/18 at 09:00 Guaifenesin/ Codeine Phosphate (Robitussin Ac Liquid Cup) 5 ml Q4H PRN PO cough Last administered on 12/12/18 21:39; Admin Dose 5 ML; Start 12/12/18 at 21:00 Phenol (Cepastat Lozenge) 1 lozenge Q1H PRN MT pain Last administered on 12/12/18 21:38; Admin Dose 1 LOZENGE; Start 12/12/18 at 21:00 Allopurinol (Zyloprim) 300 mg DAILY PO Last administered on 12/16/18 08:45; Admin Dose 300 MG; Start 12/13/18 at 09:00 Acetaminophen (Tylenol Tab) 650 mg Q4H PRN PO MILD PAIN(1-3)OR ELEVATED TEMP Last administered on 12/14/18 19:59; Admin Dose 650 MG; Start 12/12/18 at 21:00 Ceftriaxone Sodium 50 ml @ 100 mls/hr Q24H IVPB Last administered on 12/16/18 08:46; Admin Dose 100 MLS/HR; Start 12/13/18 at 09:00 Enoxaparin Sodium (Lovenox) 40 mg DAILY SC Last administered on 12/16/18 09:03; Admin Dose 40 MG; Start 12/13/18 at 09:00 Latanoprost (Xalatan) 1 drop HS BOTH EYES Last administered on 12/15/18 20:34; Admin Dose 1 DROP; Start 12/12/18 at 21:00 Fluticasone/ Vilanterol (Breo Ellipta 100-25 Mcg Inh) 1 inh DAILY INH Last administered on 12/16/18 08:46; Admin Dose 1 INH; Start 12/13/18 at 10:30 Methylprednisolone Sodium Succinate (Solu-Medrol) 40 mg Q6 IV Last administered on 12/16/18 06:41; Admin Dose 40 MG; Start 12/13/18 at 18:00 MELISSA ROWE December 16, 2018 10:24
--- NOTE | 2018-12-16 13:55 | PN ---
Date/Time of Note Date/Time of Note DATE: 12/16/18 TIME: 13:51 Assessment/Plan VTE Prophylaxis Risk score (from Ns)>0 risk: 1 SCD applied (from Ns): No SCD contraindicated: low risk/ambulating Pharmacological prophylaxis: LMWH Lines/Catheters [facility]from [facility] [place] Assessment/Plan Hospital Course A: fever- unclear source, afebrile now lactic acidosis- r/o sepsis, normal now asthma exacerbation elevated ck with myalgia HTN P: cont hydration cont current abx pending cx results cont resp rx cont iv solumedrol pulm consult cont hold losartan discussed with rheum cont hydration, will eval elevated ck as outpt monitor labs Assessment/Plan A: asthma exacerbation NSVT elevated ck with myalgias improving lactic acidosis fever HTN P: change to oral avelox d/c IVF cont steroids, resp rx cont other rx Result Diagram: 12/16/186 12/16/18 0426 Results 24hrs Laboratory Tests Test 12/16/18 04:26 White Blood Count 13.0 H Red Blood Count 4.91 Hemoglobin 15.0 Hematocrit 44.7 Mean Corpuscular Volume 91.0 Mean Corpuscular Hemoglobin 30.5 Mean Corpuscular Hemoglobin Concent 33.6 Red Cell Distribution Width 13.1 Platelet Count 285 Mean Platelet Volume 10.1 Immature Granulocytes % 1.800 H Neutrophils % 86.2 H Lymphocytes % 7.5 L Monocytes % 4.2 Eosinophils % 0.0 Basophils % 0.3 Nucleated Red Blood Cells % 0.0 Immature Granulocytes # 0.230 H Neutrophils # 11.2 H Lymphocytes # 1.0 Monocytes # 0.5 Eosinophils # 0.0 Basophils # 0.0 Nucleated Red Blood Cells # 0.0 Sodium Level 140 Potassium Level 4.3 Chloride Level 100 Carbon Dioxide Level 29 Anion Gap 11 Blood Urea Nitrogen 19 Creatinine 0.81 Est Glomerular Filtrat Rate mL/min > 60 Glucose Level 141 Calcium Level 8.8 Creatine Kinase 332 #H Subjective 24 Hr Interval Summary Free Text/Dictation Pt feeling better. Still cough and wheeze. Able to ambulate more in halls. No cp. Decreased muscle aches. Trying to drink lots of water. Exam/Review of Systems Exam Vitals Vital Signs Date Temp Pulse Resp B/P (MAP) Pulse Ox O2 O2 Flow FiO2 Time Delivery Rate 12/16/18 75 20 97 21 12:57 12/16/18 97.6 142/80 11:12 (100) 12/16/18 Nasal 2.0 05:13 Cannula Intake and Output 12/15/18 12/15/18 12/16/18 1515:00 23:00 07:00 IntakeIntake Total 850 ml 150 ml OutputOutput Total 1620 ml BalanceBalance -770 ml 150 ml Exam gen- nad, nontoxic lungs- diffuse wheeze, decreased some heart- RRR ext- no edema Results Results 24hrs Laboratory Tests Test 12/16/18 04:26 White Blood Count 13.0 H Red Blood Count 4.91 Hemoglobin 15.0 Hematocrit 44.7 Mean Corpuscular Volume 91.0 Mean Corpuscular Hemoglobin 30.5 Mean Corpuscular Hemoglobin Concent 33.6 Red Cell Distribution Width 13.1 Platelet Count 285 Mean Platelet Volume 10.1 Immature Granulocytes % 1.800 H Neutrophils % 86.2 H Lymphocytes % 7.5 L Monocytes % 4.2 Eosinophils % 0.0 Basophils % 0.3 Nucleated Red Blood Cells % 0.0 Immature Granulocytes # 0.230 H Neutrophils # 11.2 H Lymphocytes # 1.0 Monocytes # 0.5 Eosinophils # 0.0 Basophils # 0.0 Nucleated Red Blood Cells # 0.0 Sodium Level 140 Potassium Level 4.3 Chloride Level 100 Carbon Dioxide Level 29 Anion Gap 11 Blood Urea Nitrogen 19 Creatinine 0.81 Est Glomerular Filtrat Rate mL/min > 60 Glucose Level 141 Calcium Level 8.8 Creatine Kinase 332 #H Medications Medication Current Medications Albuterol/ Ipratropium (Duoneb) 3 ml Q4H RESP THERAPY HHN Last administered on 12/16/18at 12:56; Admin Dose 3 ML; Start 12/12/18 at 21:00 Amlodipine Besylate (Norvasc) 10 mg DAILY PO Last administered on 12/16/18at 08:45; Admin Dose 10 MG; Start 12/12/18 at 21:00 Lisinopril (Zestril) 10 mg DAILY PO Last administered on 12/16/18at 08:45; Admin Dose 10 MG; Start 12/13/18 at 09:00 Guaifenesin/ Codeine Phosphate (Robitussin Ac Liquid Cup) 5 ml Q4H PRN PO cough Last administered on 12/12/18at 21:39; Admin Dose 5 ML; Start 12/12/18 at 21:00 Phenol (Cepastat Lozenge) 1 lozenge Q1H PRN MT pain Last administered on 12/12/18 21:38; Admin Dose 1 LOZENGE; Start 12/12/18 at 21:00 Allopurinol (Zyloprim) 300 mg DAILY PO Last administered on 12/16/18 08:45; Admin Dose 300 MG; Start 12/13/18 at 09:00 Acetaminophen (Tylenol Tab) 650 mg Q4H PRN PO MILD PAIN(1-3)OR ELEVATED TEMP Last administered on 12/14/18 19:59; Admin Dose 650 MG; Start 12/12/18 at 21:00 Ceftriaxone Sodium 50 ml @ 100 mls/hr Q24H IVPB Last administered on 12/16/18 08:46; Admin Dose 100 MLS/HR; Start 12/13/18 at 09:00 Enoxaparin Sodium (Lovenox) 40 mg DAILY SC Last administered on 12/16/18 09:03; Admin Dose 40 MG; Start 12/13/18 at 09:00 Latanoprost (Xalatan) 1 drop HS BOTH EYES Last administered on 12/15/18 20:34; Admin Dose 1 DROP; Start 12/12/18 at 21:00 Fluticasone/ Vilanterol (Breo Ellipta 100-25 Mcg Inh) 1 inh DAILY INH Last administered on 12/16/18 08:46; Admin Dose 1 INH; Start 12/13/18 at 10:30 Methylprednisolone Sodium Succinate (Solu-Medrol) 40 mg Q6 IV Last administered on 12/16/18 11:17; Admin Dose 40 MG; Start 12/13/18 at 18:00 BRANDY BENITEZ MD December 16, 2018 13:55
--- NOTE | 2018-12-16 14:20 | CONS ---
Assessment/Plan Assessment/Plan Hospital Course (Demo Recall) PVCs/NSVT- one run, no symptoms. no ischemia on ecg or symptoms. no h/o heart disease or structural anbml on echo. no further cardiac workup. can fu as outpt Asthma- exacerbation with bronchitis. cont tx per pcp/pulm HTN- hx, controlled Consultation Date/Type/Reason Admit Date/Time December 12, 2018 at 15:27 Initial Consult Date 12/14/18 Type of Consult cardiology Requesting Provider: BRANDY BENITEZ MD Date/Time of Note DATE: 12/16/18 TIME: 14:17 24 HR Interval Summary Free Text/Dictation no acute events still w cough sputum . no palp, cp tele reviewed no events Detailed Summary Eyes: no complaints ENT: no complaints Respiratory: cough, shortness of breath, sputum Cardiovascular: no complaints Exam/Review of Systems Exam Vitals Vital Signs Date Temp Pulse Resp B/P (MAP) Pulse Ox O2 O2 Flow FiO2 Time Delivery Rate 12/16/18 75 20 97 21 12:57 12/16/18 97.6 142/80 11:12 (100) 12/16/18 Nasal 2.0 05:13 Cannula Intake and Output 12/15/18 12/15/18 12/16/18 1515:00 23:00 07:00 IntakeIntake Total 850 ml 150 ml OutputOutput Total 1620 ml BalanceBalance -770 ml 150 ml Exam Constitutional: alert, oriented, well developed Psych: no complaints, nl mood/affect; No anxiety Eyes: nl conjunctiva ENMT: nl external ears & nose, mucosa pink and moist Neck: supple, non-tender; No jvd, No bruits Respiratory: congested cough, wheezing Cardiovascular: regular rate and rhythm, nl pulses, systolic murmur; No bruits, No diastolic murmur, No edema, No irregular rhythm Gastrointestinal: soft, non-tender Musculoskeletal: nl extremities to inspection, nl gait and stance Extremities: normal pulses Neurological: [employer]WALL [employer]EM[employer] II-XII intact, nl mental status Results Result Diagram: 12/16/1842512/16/18425 Results 24hrs Laboratory Tests Test 12/16/18 04:26 White Blood Count 13.0 H Red Blood Count 4.91 Hemoglobin 15.0 Hematocrit 44.7 Mean Corpuscular Volume 91.0 Mean Corpuscular Hemoglobin 30.5 Mean Corpuscular Hemoglobin Concent 33.6 Red Cell Distribution Width 13.1 Platelet Count 285 Mean Platelet Volume 10.1 Immature Granulocytes % 1.800 H Neutrophils % 86.2 H Lymphocytes % 7.5 L Monocytes % 4.2 Eosinophils % 0.0 Basophils % 0.3 Nucleated Red Blood Cells % 0.0 Immature Granulocytes # 0.230 H Neutrophils # 11.2 H Lymphocytes # 1.0 Monocytes # 0.5 Eosinophils # 0.0 Basophils # 0.0 Nucleated Red Blood Cells # 0.0 Sodium Level 140 Potassium Level 4.3 Chloride Level 100 Carbon Dioxide Level 29 Anion Gap 11 Blood Urea Nitrogen 19 Creatinine 0.81 Est Glomerular Filtrat Rate mL/min > 60 Glucose Level 141 Calcium Level 8.8 Creatine Kinase 332 #H Imaging Imaging cxr report reviewed Medications Medication Current Medications Albuterol/ Ipratropium (Duoneb) 3 ml Q4H RESP THERAPY HHN Last administered on 12/16/18 12:56; Admin Dose 3 ML; Start 12/12/18 at 21:00 Amlodipine Besylate (Norvasc) 10 mg DAILY PO Last administered on 12/16/18 08:45; Admin Dose 10 MG; Start 12/12/18 at 21:00 Lisinopril (Zestril) 10 mg DAILY PO Last administered on 12/16/18 08:45; Admin Dose 10 MG; Start 12/13/18 at 09:00 Guaifenesin/ Codeine Phosphate (Robitussin Ac Liquid Cup) 5 ml Q4H PRN PO cough Last administered on 12/12/18 21:39; Admin Dose 5 ML; Start 12/12/18 at 21:00 Phenol (Cepastat Lozenge) 1 lozenge Q1H PRN MT pain Last administered on 12/12/18 21:38; Admin Dose 1 LOZENGE; Start 12/12/18 at 21:00 Allopurinol (Zyloprim) 300 mg DAILY PO Last administered on 12/16/18 08:45; Admin Dose 300 MG; Start 12/13/18 at 09:00 Acetaminophen (Tylenol Tab) 650 mg Q4H PRN PO MILD PAIN(1-3)OR ELEVATED TEMP Last administered on 12/14/18 19:59; Admin Dose 650 MG; Start 12/12/18 at 21:00 Enoxaparin Sodium (Lovenox) 40 mg DAILY SC Last administered on 12/16/18 09:03; Admin Dose 40 MG; Start 12/13/18 at 09:00 Latanoprost (Xalatan) 1 drop HS BOTH EYES Last administered on 12/15/18at 20:34; Admin Dose 1 DROP; Start 12/12/18 at 21:00 Fluticasone/ Vilanterol (Breo Ellipta 100-25 Mcg Inh) 1 inh DAILY INH Last administered on 12/16/18at 08:46; Admin Dose 1 INH; Start 12/13/18 at 10:30 Methylprednisolone Sodium Succinate (Solu-Medrol) 40 mg Q6 IV Last administered on 12/16/18at 11:17; Admin Dose 40 MG; Start 12/13/18 at 18:00 Levofloxacin (Levaquin) 500 mg DAILY@06 PO ; Start 12/17/18 at 06:00 MARIE MAYS December 16, 2018 14:20
[2018-12-16] MEDS: LATANOPROST 0.005% 2.5 ML OPH BOTH EYES SCH (21:41)
[2018-12-17] VITALS: BP 137/72; PULSE 66; PULSE 70; RESP 19
[2018-12-17] MEDS: ALBUTEROL/IPRATROPIUM (NEB) 3 ML AMP HHN SCH ×4 (00:03→13:00)
[2018-12-17 04:00] VITALS: BP 128/77; PULSE 72; RESP 19
[2018-12-17] MEDS: METHYLPREDNISOLONE 40 MG INJ IV SCH ×2 (05:40→11:57)
[2018-12-17] MEDS ORDERED: LEVOFLOXACIN 500 MG TAB PO SCH (06:00)
[2018-12-17 07:10] VITALS: BP 155/91; PULSE 88; RESP 18
[2018-12-17 09:09] VITALS: PULSE 90
[2018-12-17] MEDS: FLUTICASONE/VILANTEROL 100-25 INH SCH (09:15)
[2018-12-17] MEDS: AMLODIPINE 10 MG TAB PO SCH (09:16)
[2018-12-17] MEDS: LISINOPRIL 10 MG TAB PO SCH (09:16)
[2018-12-17] MEDS: ALLOPURINOL 300 MG TAB PO SCH (09:16)
[2018-12-17] MEDS: ENOXAPARIN 40 MG/0.4 ML SYG SC SCH (09:26)
[2018-12-17 11:15] VITALS: BP 140/82; PULSE 71; RESP 18
--- NOTE | 2018-12-17 12:45 | CONS ---
Assessment/Plan Assessment/Plan Assessment/Plan (Daily) Assessment and recommendations; 1. Patient admitted with asthma exacerbation with marked interval improvement. 2. History of gout, hypertension and glaucoma. Discharge patient on Medrol Dosepak without any further antibiotic administration. Continue outpatient bronchial dilator regimen. Follow-up with primary care physician in 1 week. Consultation Date/Type/Reason Admit Date/Time December 12, 2018 at 15:27 Initial Consult Date 12/14/18 Type of Consult Pulmonary Patient is a 53-year-old [place] gentleman who came into the hospital yesterday with a 10-day history of coughing sputum production wheezing and chest conges tion. The patient does have a history of asthma. He denies any high fever, body aches or myalgias. Does complain of mild sore throat. Denies any nausea vomiting. Past medical history; 1. History of asthma 2. Gout 3. Glaucoma 4. Hypertension Medications; reviewed Allergies; none Social history; noncontributory Family history; he is single, no show any asthma in the family. Occupational history; patient is on disability. Review of systems; denies any headache, visual changes, sinus symptoms. Complains of mild sore throat. Denies any fever or chills. Complains of wheezing, cough, production of yellow sputum. Denies any hemoptysis. Denies any abdominal pain, nausea vomiting. Any melena or hematochezia. Denies any edema. Any urinary symptoms. General exam; middle-aged male, awake alert, currently no distress. Requesting Provider: BRANDY BENITEZ MD Date/Time of Note DATE: 12/17/18 TIME: 12:43 24 HR Interval Summary Free Text/Dictation Patient's condition is stable. Denies any shortness of breath, coughing, wheezing. Wants to go home. General exam; middle-aged male, awake alert, ambulating in the hospital. Currently no distress. Exam/Review of Systems Exam Vitals Vital Signs Date Temp Pulse Resp B/P (MAP) Pulse Ox O2 O2 Flow FiO2 Time Delivery Rate 12/17/18 98.1 71 18 140/82 98 Room Air 11:15 (101) 12/17/18 21 07:09 12/17/18 2.0 03:45 Intake and Output 12/16/18 12/16/18 12/17/18 1515:00 23:00 07:00 IntakeIntake Total 50 ml 800 ml 400 ml OutputOutput Total 1300 ml 1000 ml BalanceBalance 50 ml -500 ml -600 ml Exam HEENT exam; supple neck, no JVD. No lymphadenopathy. Midline trachea. No thyromegaly. Patient has fair dentition. No neck masses. Chest exam; diminished but clear breath sounds. No added sounds. S1-S2 audible, no murmurs. Regular rhythm. Abdomen exam; soft, nontender. No organomegaly. Bowel sounds are audible. Extremity exam; no peripheral edema or clubbing. CONTINUITY COORDINATOR exam; no focal deficit. Results Result Diagram: 12/17/1852212/17/18522 Results 24hrs Laboratory Tests Test 12/17/18 05:23 White Blood Count 12.4 H Red Blood Count 4.99 Hemoglobin 15.1 Hematocrit 44.4 Mean Corpuscular Volume 89.0 Mean Corpuscular Hemoglobin 30.3 Mean Corpuscular Hemoglobin Concent 34.0 Red Cell Distribution Width 12.8 Platelet Count 300 Mean Platelet Volume 9.9 Immature Granulocytes % 2.200 H Neutrophils % 83.2 H Lymphocytes % 8.1 L Monocytes % 6.3 Eosinophils % 0.0 Basophils % 0.2 Nucleated Red Blood Cells % 0.2 H Immature Granulocytes # 0.270 H Neutrophils # 10.3 H Lymphocytes # 1.0 Monocytes # 0.8 Eosinophils # 0.0 Basophils # 0.0 Nucleated Red Blood Cells # 0.0 Sodium Level 139 Potassium Level 4.0 Chloride Level 101 Carbon Dioxide Level 28 Anion Gap 10 Blood Urea Nitrogen 19 Creatinine 0.84 Est Glomerular Filtrat Rate mL/min > 60 Glucose Level 147 Calcium Level 8.7 Medications Medication Current Medications Albuterol/ Ipratropium (Duoneb) 3 ml Q4H RESP THERAPY HHN Last administered on 12/17/18at 07:07; Admin Dose 3 ML; Start 12/12/18 at 21:00 Amlodipine Besylate (Norvasc) 10 mg DAILY PO Last administered on 12/17/18 09:16; Admin Dose 10 MG; Start 12/12/18 at 21:00 Lisinopril (Zestril) 10 mg DAILY PO Last administered on 12/17/18 09:16; Admin Dose 10 MG; Start 12/13/18 at 09:00 Guaifenesin/ Codeine Phosphate (Robitussin Ac Liquid Cup) 5 ml Q4H PRN PO cough Last administered on 12/12/18 21:39; Admin Dose 5 ML; Start 12/12/18 at 21:00 Phenol (Cepastat Lozenge) 1 lozenge Q1H PRN MT pain Last administered on 12/12/18 21:38; Admin Dose 1 LOZENGE; Start 12/12/18 at 21:00 Allopurinol (Zyloprim) 300 mg DAILY PO Last administered on 12/17/18 09:16; Admin Dose 300 MG; Start 12/13/18 at 09:00 Acetaminophen (Tylenol Tab) 650 mg Q4H PRN PO MILD PAIN(1-3)OR ELEVATED TEMP Last administered on 12/14/18 19:59; Admin Dose 650 MG; Start 12/12/18 at 21:00 Enoxaparin Sodium (Lovenox) 40 mg DAILY SC Last administered on 12/17/18 09:26; Admin Dose 40 MG; Start 12/13/18 at 09:00 Latanoprost (Xalatan) 1 drop HS BOTH EYES Last administered on 12/16/18 21:41; Admin Dose 1 DROP; Start 12/12/18 at 21:00 Fluticasone/ Vilanterol (Breo Ellipta 100-25 Mcg Inh) 1 inh DAILY INH Last administered on 12/17/18 09:15; Admin Dose 1 INH; Start 12/13/18 at 10:30 Methylprednisolone Sodium Succinate (Solu-Medrol) 40 mg Q6 IV Last administered on 12/17/18 11:57; Admin Dose 40 MG; Start 12/13/18 at 18:00 Levofloxacin (Levaquin) 500 mg DAILY@06 PO Last administered on 12/17/18 05:40; Admin Dose 500 MG; Start 12/17/18 at 06:00 MELISSA ROWE December 17, 2018 12:45
[2018-12-17 12:46] VITALS: PULSE 82
--- NOTE | 2018-12-17 12:53 | PN ---
Date/Time of Note Date/Time of Note DATE: 12/17/18 TIME: 12:48 Assessment/Plan VTE Prophylaxis Risk score (from Ns)>0 risk: 2 SCD applied (from Ns): No SCD contraindicated: low risk/ambulating Pharmacological prophylaxis: LMWH Lines/Catheters IV Catheter Type (from Nrs): Saline Lock Assessment/Plan Hospital Course A: fever- unclear source, afebrile now lactic acidosis- r/o sepsis, normal now asthma exacerbation elevated ck with myalgia HTN P: cont hydration cont current abx pending cx results cont resp rx cont iv solumedrol pulm consult cont hold losartan discussed with rheum cont hydration, will eval elevated ck as outpt monitor labs Assessment/Plan A: asthma exacerbation NSVT elevated ck lactic acidosis fever HTN P: discussed with marina [place] to d/c home, medrol dose pack, no abx, continue albuterol and steroid inhalers f/u with pulm in 2wks, cards in 2wks, with me next week meds- medrol dose pack, lisinopril 10mg, albuterol prn, symbicort bid, allopurinol 300mg, norvasc 10mg, xalatan eye drops Result Diagram: 12/17/1852212/17/18522 Results 24hrs Laboratory Tests Test 12/17/18 05:23 White Blood Count 12.4 H Red Blood Count 4.99 Hemoglobin 15.1 Hematocrit 44.4 Mean Corpuscular Volume 89.0 Mean Corpuscular Hemoglobin 30.3 Mean Corpuscular Hemoglobin Concent 34.0 Red Cell Distribution Width 12.8 Platelet Count 300 Mean Platelet Volume 9.9 Immature Granulocytes % 2.200 H Neutrophils % 83.2 H Lymphocytes % 8.1 L Monocytes % 6.3 Eosinophils % 0.0 Basophils % 0.2 Nucleated Red Blood Cells % 0.2 H Immature Granulocytes # 0.270 H Neutrophils # 10.3 H Lymphocytes # 1.0 Monocytes # 0.8 Eosinophils # 0.0 Basophils # 0.0 Nucleated Red Blood Cells # 0.0 Sodium Level 139 Potassium Level 4.0 Chloride Level 101 Carbon Dioxide Level 28 Anion Gap 10 Blood Urea Nitrogen 19 Creatinine 0.84 Est Glomerular Filtrat Rate mL/min > 60 Glucose Level 147 Calcium Level 8.7 Subjective 24 Hr Interval Summary Free Text/Dictation Pt feeling better, decreased cough and wheeze. Ambulates in hallway without probs. No cp, sob, dizziness. Exam/Review of Systems Exam Vitals Vital Signs Date Temp Pulse Resp B/P (MAP) Pulse Ox O2 O2 Flow FiO2 Time Delivery Rate 12/17/18 82 12:46 12/17/18 98.1 18 140/82 98 Room Air 11:15 (101) 12/17/18 21 07:09 12/17/18 2.0 03:45 Intake and Output 12/16/18 12/16/18 12/17/18 1515:00 23:00 07:00 IntakeIntake Total 50 ml 800 ml 400 ml OutputOutput Total 1300 ml 1000 ml BalanceBalance 50 ml -500 ml -600 ml Exam gen- nad, nontoxic lungs- min exp wheeze heart- RRR ext- no edema Results Results 24hrs Laboratory Tests Test 12/17/18 05:23 White Blood Count 12.4 H Red Blood Count 4.99 Hemoglobin 15.1 Hematocrit 44.4 Mean Corpuscular Volume 89.0 Mean Corpuscular Hemoglobin 30.3 Mean Corpuscular Hemoglobin Concent 34.0 Red Cell Distribution Width 12.8 Platelet Count 300 Mean Platelet Volume 9.9 Immature Granulocytes % 2.200 H Neutrophils % 83.2 H Lymphocytes % 8.1 L Monocytes % 6.3 Eosinophils % 0.0 Basophils % 0.2 Nucleated Red Blood Cells % 0.2 H Immature Granulocytes # 0.270 H Neutrophils # 10.3 H Lymphocytes # 1.0 Monocytes # 0.8 Eosinophils # 0.0 Basophils # 0.0 Nucleated Red Blood Cells # 0.0 Sodium Level 139 Potassium Level 4.0 Chloride Level 101 Carbon Dioxide Level 28 Anion Gap 10 Blood Urea Nitrogen 19 Creatinine 0.84 Est Glomerular Filtrat Rate mL/min > 60 Glucose Level 147 Calcium Level 8.7 Medications Medication Current Medications Albuterol/ Ipratropium (Duoneb) 3 ml Q4H RESP THERAPY HHN Last administered on 12/17/18at 07:07; Admin Dose 3 ML; Start 12/12/18 at 21:00 Amlodipine Besylate (Norvasc) 10 mg DAILY PO Last administered on 12/17/18at 09:16; Admin Dose 10 MG; Start 12/12/18 at 21:00 Lisinopril (Zestril) 10 mg DAILY PO Last administered on 12/17/18 09:16; Admin Dose 10 MG; Start 12/13/18 at 09:00 Guaifenesin/ Codeine Phosphate (Robitussin Ac Liquid Cup) 5 ml Q4H PRN PO cough Last administered on 12/12/18 21:39; Admin Dose 5 ML; Start 12/12/18 at 21:00 Phenol (Cepastat Lozenge) 1 lozenge Q1H PRN MT pain Last administered on 12/12/18 21:38; Admin Dose 1 LOZENGE; Start 12/12/18 at 21:00 Allopurinol (Zyloprim) 300 mg DAILY PO Last administered on 12/17/18 09:16; Admin Dose 300 MG; Start 12/13/18 at 09:00 Acetaminophen (Tylenol Tab) 650 mg Q4H PRN PO MILD PAIN(1-3)OR ELEVATED TEMP Last administered on 12/14/18 19:59; Admin Dose 650 MG; Start 12/12/18 at 21:00 Enoxaparin Sodium (Lovenox) 40 mg DAILY SC Last administered on 12/17/18 09 :26; Admin Dose 40 MG; Start 12/13/18 at 09:00 Latanoprost (Xalatan) 1 drop HS BOTH EYES Last administered on 12/16/18 21:41; Admin Dose 1 DROP; Start 12/12/18 at 21:00 Fluticasone/ Vilanterol (Breo Ellipta 100-25 Mcg Inh) 1 inh DAILY INH Last administered on 12/17/18 09:15; Admin Dose 1 INH; Start 12/13/18 at 10:30 Methylprednisolone Sodium Succinate (Solu-Medrol) 40 mg Q6 IV Last administered on 12/17/18 11:57; Admin Dose 40 MG; Start 12/13/18 at 18:00 Levofloxacin (Levaquin) 500 mg DAILY@06 PO Last administered on 12/17/18 05:40; Admin Dose 500 MG; Start 12/17/18 at 06:00 BRANDY BENITEZ MD December 17, 2018 12:53
--- NOTE | 2018-12-17 12:54 | PDOCDIS ---
Discharge Instructions CONDITION [id number] Patient Condition: [id number] Good FOLLOW UP/APPOINTMENTS Follow-up Plan f/u with Dr. Benitez this week f/u with Dr. Pugh in 2wks f/u with Dr. Walker in 2wks BRANDY BENITEZ MD December 17, 2018 12:54
[2018-12-17] MEDS ORDERED: LISI10TA2 PO (12:59)
--- NOTE | 2018-12-17 15:20 | DS ---
DATE OF ADMISSION: 12/12/2018 DATE OF DISCHARGE: 12/17/2018 DISCHARGE DIAGNOSES: 1. Asthma exacerbation. 2. Lactic acidosis. 3. Fever. 4. Nonsustained ventricular tachycardia. 5. Elevated CK with myalgias. 6. Hypertension. PROCEDURES: A 2D echocardiogram. CONSULTATIONS: Pulmonary, Dr. Pugh and Dr. Dean and cardiology, Dr. Walker. HISTORY OF PRESENT ILLNESS: The patient is a 53-year-old [place] male with history of asthma who galindo d been feeling ill for a few days prior to admission with sore throat, productive cough with yellow s putum, muscle aches, wheezing, shortness of breath and subjective fever. The patient presented to [facility] ER and noted to have an acute asthma exacerbation with increasing lactic acid. The patient was hyd rated and was started on antibiotics. He also had a fever to 101 with white count of 16.4. The dev ent was admitted for further management. PHYSICAL EXAMINATION: VITAL SIGNS: On admission notable for temperature of 101.9, pulse 95, blood pressure 154/82, pulse o x was 95% on room air, respiratory rate 20. GENERAL: Notable for patient was well-developed, well-nourished, complaints of shortness of breath, but in no acute distress, appeared nontoxic. LUNGS: Diffuse expiratory wheeze. CARDIAC: Regular rate and rhythm. EXTREMITIES: Without cyanosis, clubbing or edema. LABORATORY DATA: Notable for white count 16.4, hemoglobin 15.2, platelets 249. BUN 18, creatinine 0 .95, glucose 155. Troponin is less than 0.012. Lactate 2.1, increased to 3.2; serum lactate peaked at 6, then decrease to 5.5. UA slightly cloudy, 3+ red cells, 2+ white cells, 1+ hemoglobin, many mu cus, 2+ protein. DIAGNOSTIC DATA: Chest x-ray showed large cardiac silhouette, central interstitial prominence, no ob vious consolidation or effusion. EKG was sinus rhythm. HOSPITAL COURSE: 1. Asthma exacerbation. The patient with acute asthma exacerbation, was started initially on antibi otics, respiratory treatments given IV Solu-Medrol with some slow improvement of his symptoms. Ultim ately, the patient became relatively symptom-free with only minimal expiratory wheeze. Antibiotics w ill be discontinued at time of discharge. We will continue his Medrol Dosepak. Continue outpatient inhalers with close followup with myself and pulmonary. 2. Nonsustained VT. The patient with episode of nonsustained VT, seen in cardiac evaluation by Dr. Walker. The patient had a 2D echo. No obvious structural issues. The patient will be followed as an outpatient. 3. Lactic acidosis. The patient with increasing lactic acid, clinically did not seem to be septic, was continued on hydration, IV antibiotics with normalization of his lactic acid. The patient remain ed clinically stable. Blood cultures were negative. 4. Fever. The patient with initial fever, defervesced and remained afebrile during his hospitalizat ion. Pulmonary felt patient did not need any further antibiotics after his course during his hospita lization. 5. Elevated CK with myalgias. The patient had been on losartan, was not on any statins. Losartan w as held. CK did improve. The patient did have an outpatient appointment with rheumatology. I discu ssed with them by phone and they felt that they could follow him as an outpatient. CK did improve du ring his hospitalization, but still remained mildly elevated. He will continue off his losartan. patient has been switched over to lisinopril. 6. Hypertension as noted above. Losartan was discontinued, continued on lisinopril and Norvasc. DISPOSITION: Discharge the patient home. DISCHARGE MEDICATIONS: 1. Medrol Dosepak. 2. Symbicort 2 puffs b.i.d. 3. Lisinopril 10 mg daily. 4. Allopurinol 300 mg daily. 5. Albuterol 2 puffs q.4 hours p.r.n. 6. Amlodipine 10 mg daily. 7. Xalatan eyedrops as directed. CONDITION: Good. DIET: Low sodium. FOLLOWUP: The patient is to follow up with me this week. Follow up with pulmonary in 2 weeks. Foll ow up with cardiology in 2 weeks. Room appointment as directed. Dictated By: BRANDY FLORES/VAISHNAVI Conf#: [id number] DID#: [id number] CC: ALEX PUGH MD;*EndCC*
== END 2018-12-17 15:07 | disposition home or self-care (01) | DRG 202 ==
LOC: FTE 09:07 → 6WM 15:27
PROVIDERS: ADMIT Internal Medicine; ATTEND Internal Medicine
DX: J45.901 Unspecified asthma with (acute) exacerbation (principal); J96.01 Acute respiratory failure with hypoxia; E87.2 Acidosis; I47.1 Supraventricular tachycardia; J20.9 Acute bronchitis, unspecified; M10.9 Gout, unspecified; I10 Essential (primary) hypertension; R74.8 Abnormal levels of other serum enzymes; M79.10 Myalgia, unspecified site; H40.9 Unspecified glaucoma; E11.9 Type 2 diabetes mellitus without complications
CPT/HCPCS: 36415; 71045; 80048; 80053; 81001; 82085; 82550; 83605; 83735; 84100; 84145; 84443; 84484; 85025; 85610; 85730; 87070; 87086; 87400; 93005; 93306; 94640; 94644; 94664; 96365; 96375; J0456; J0696; J1650; J1885; J2920; J2930; J3480; J7030; J7050